=== PATIENT | female | born 1960 | race Caucasian/White ===

== ENCOUNTER 2022-03-12 00:46 | Inpatient (IN) | payer MEDICAID, OTHER ==
[2022-03-12] VITALS (14 sets, daily range): BP systolic 92–130; BP diastolic 59–87
[~2022-03-12] VITALS: Ht 162.6 cm; Wt 79.6 kg
[2022-03-12] MEDS ORDERED: LACTATED RINGERS 1,000 ML IV ONE (01:00)
[2022-03-12] MEDS ORDERED: fentaNYL INJ 100 MCG/2 ML AMP IVP STA ×2 (01:00→01:46)
[2022-03-12 01:01] LABS: BASOPHILS # (AUTO) 0.1 10^3/uL (0.0-0.1); BASOPHILS % (AUTO) 1 % (0-10); EOSINOPHILS # (AUTO) 0.5 10^3/uL (0.0-0.3); EOSINOPHILS % (AUTO) 5 % (0-10); HEMATOCRIT 38 % (35-52); HEMOGLOBIN 12.7 g/dL (11.5-16.0); LYMPHOCYTES # (AUTO) 2.9 10^3/uL (1.0-4.0); LYMPHOCYTES % (AUTO) 30 % (12-44); MEAN CORPUSCULAR HEMOGLOBIN 29 pg (25-34); MEAN CORPUSCULAR HGB CONC 33 g/dL (32-36); MEAN CORPUSCULAR VOLUME 88 fL (80-99); MEAN PLATELET VOLUME 9.1 fL (9.0-12.2); MONOCYTES % (AUTO) 11 % (0-12); NEUTROPHILS # (AUTO) 5.2 10^3/uL (1.8-7.8); NEUTROPHILS % (AUTO) 54 % (42-75); PLATELET COUNT 341 10^3/uL (130-400); WHITE BLOOD COUNT 9.7 10^3/uL (4.3-11.0)
--- NOTE | 2022-03-12 01:04 | ED Hip Pain/Injury ---
General Chief Complaint: Hip/Pelvic Problems Stated Complaint: LEFT HIP FX Source: patient (EXTREMELY DIFFICULT HISTORIAN, MUCH CONVOLUTED AND INCONSISTENT INFORMATION. PT APPEARS TO BE UNDER THE INFLUENCE OF SOME SUBSTANCE/S) History of Present Illness Date Seen by Provider: Mar 12, 2022 Time Seen by Provider: 00:48 Initial Comments PT ARRIVES VIA EMS FROM A LOCAL RESIDENCE C/O LEFT HIP PAIN STATES THAT LAST THURSDAY, SHE TRIPPED ON A RUG AND FELL, LANDING ON LEFT HIP. STATES SHE WENT TO [facility] YESTERDAY/THURSDAY AND HAD XRAYS DONE. SHE STATES THEY CALLED HER TODAY AND TOLD HER IT WAS BROKEN, AND TO GO TO ER IF HER PAIN GOT WORSE EMS WAS CALLED [facility] FOR INTRACTABLE PAIN AND INABILITY TO STAND PT STATES SHE HAS CHRONIC BACK PAIN AND HAS NEUROPATHY IN HER FEET STATES SHE FELL IN 2009 AND INJURED HER BACK, BUT NO FRACTURES. SHE WENT TO PAIN MANAGEMENT AND HAD INJECTIONS IN HER BACK. SHE LIVES WITH HER [id number] IN [place], BUT HAS BEEN HERE VISITING HER SISTER FOR THE LAST WEEK. SHE DENIES ANY MEDICAL PROBLEMS. STATES SHE DOES NOT HAVE A DR. "JUST GOT MY [place] MEDICAID" PT STATES SHE USES METH ON A REGULAR BASIS--SMOKES IT--DENIES IV USE ALSO HAS HISTORY OF MARIJUANA USE OCCASIONAL ALCOHOL USE, BUT NONE TODAY QUIT SMOKING , USED TO SMOKE 1 PPD. Other PCP: NONE Allergies and Home Medications Allergies Coded Allergies: Sulfa (Sulfonamide Antibiotics) (Verified Allergy, Unknown, 03/12/22) codeine (Verified Allergy, Unknown, 03/12/22) Patient Home Medication List Home Medication List Reviewed: Yes Review of Systems Constitutional: no symptoms reported Respiratory: no symptoms reported Cardiovascular: no symptoms reported Gastrointestinal: no symptoms reported Genitourinary: no symptoms reported Control/STD Prophylaxis: None Musculoskeletal: see HPI Skin: no symptoms reported Psychiatric/Neurological: See HPI Past Xlynaka-Lmmaoi-Vbmvxb Hx Patient Social History Tobacco Use?: Yes Tobacco type used: Cigarettes Smoking Status: Former Smoker Use of E-Cig and/or Vaping dev: No Substance use?: Yes Substance type: Methamphetamine, Marijuana Additional substance use comme: DENIES IV DRUG USE. 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 oz. kg; BMI Method: General Appearance: WD/WN, Other (WAILING, SOBBING LOUDLY, EXTREMELY DRAMATIC, TALKING RAPIDLY AND TANGENTIAL. APPEARS TO BE UNDER THE INFLUENCE OF SOME SUBSTANCE/S) HEENT: PERRL/EOMI Neck: Normal Inspection, Non Tender Cardiovascular: Regular Rate, Rhythm, No Edema, No JVD, No Murmur Respiratory: Chest Non Tender, Normal Breath Sounds, No Accessory Muscle Use, No Respiratory Distress Gastrointestinal: Non Tender, Soft Extremity: Normal Capillary Refill, No Pedal Edema, Other (TENDERNESS TO LEFT HIP) Neurologic/Psychiatric: Alert, Oriented x3, No Motor/Sensory Deficits, Other (BEHAVIOR ABOVE. ) Skin: Normal Color, Warm/Dry Progress/Results/Core Measures Results/Orders Lab Results Laboratory Tests Test 03/12/22 00:50 03/12/22 01:02 03/12/22 01:20 Range/Units White Blood Count 9.7 4.3-11.0 10^3/uL Red Blood Count 4.35 3.80-5.11 10^6/uL Hemoglobin 12.7 11.5-16.0 g/dL Hematocrit 38 35-52 % Mean Corpuscular Volume 88 80-99 fL Mean Corpuscular Hemoglobin 29 25-34 pg Mean Corpuscular Hemoglobin Concent 33 32-36 g/dL Red Cell Distribution Width 12.7 10.0-14.5 % Platelet Count 341 130-400 10^3/uL Mean Platelet Volume 9.1 9.0-12.2 fL Immature Granulocyte % (Auto) 0 % Neutrophils (%) (Auto) 54 42-75 % Lymphocytes (%) (Auto) 30 12-44 % Monocytes (%) (Auto) 11 0-12 % Eosinophils (%) (Auto) 5 0-10 % Basophils (%) (Auto) 1 0-10 % Neutrophils # (Auto) 5.2 1.8-7.8 10^3/uL Lymphocytes # (Auto) 2.9 1.0-4.0 10^3/uL Monocytes # (Auto) 1.0 0.0-1.0 10^3/uL Eosinophils # (Auto) 0.5 H 0.0-0.3 10^3/uL Basophils # (Auto) 0.1 0.0-0.1 10^3/uL Immature Granulocyte # (Auto) 0.0 0.0-0.1 10^3/uL Sodium Level 137 135-145 MMOL/L Potassium Level 4.5 3.6-5.0 MMOL/L Chloride Level 105 98-107 MMOL/L Carbon Dioxide Level 21 21-32 MMOL/L Anion Gap 11 5-14 MMOL/L Blood Urea Nitrogen 24 H 7-18 MG/DL Creatinine 0.71 0.60-1.30 MG/DL Estimat Glomerular Filtration Rate 98 BUN/Creatinine Ratio 34 Glucose Level 118 H 70-105 MG/DL Calcium Level 9.9 8.5-10.1 MG/DL Corrected Calcium 10.1 8.5-10.1 MG/DL Total Bilirubin 0.2 0.1-1.0 MG/DL Aspartate Amino Transf (AST/SGOT) 17 5-34 U/L Alanine Aminotransferase (ALT/SGPT) 25 0-55 U/L Alkaline Phosphatase 125 40-136 U/L Total Protein 7.6 6.4-8.2 GM/DL Albumin 3.8 3.2-4.5 GM/DL Serum Alcohol < 10 <10 MG/DL Prothrombin Time 13.2 12.2-14.7 SEC INR Comment 1.0 0.8-1.4 Activated Partial Thromboplast Time 33 24-35 SEC Urine Color YELLOW Urine Clarity CLEAR Urine pH 6.5 5-9 Urine Specific [place] 1.015 L 1.016-1.022 Urine Protein NEGATIVE NEGATIVE Urine Glucose (UA) NEGATIVE NEGATIVE Urine Ketones NEGATIVE NEGATIVE Urine Nitrite NEGATIVE NEGATIVE Urine Bilirubin NEGATIVE NEGATIVE Urine Urobilinogen 0.2 < = 1.0 MG/DL Urine Leukocyte Esterase NEGATIVE NEGATIVE Urine RBC (Auto) NEGATIVE NEGATIVE Urine RBC NONE /HPF Urine WBC NONE /HPF Urine Squamous Epithelial Cells 0-2 /HPF Urine Crystals NONE /LPF Urine Bacteria NEGATIVE /HPF Urine Casts NONE /LPF Urine Mucus SMALL H /LPF Urine Culture Indicated NO Urine Opiates Screen NEGATIVE NEGATIVE Urine Oxycodone Screen NEGATIVE NEGATIVE Urine Methadone Screen NEGATIVE NEGATIVE Urine Propoxyphene Screen NEGATIVE NEGATIVE Urine Barbiturates Screen NEGATIVE NEGATIVE Ur Tricyclic Antidepressants Screen NEGATIVE NEGATIVE Urine Phencyclidine Screen NEGATIVE NEGATIVE Urine Amphetamines Screen POSITIVE H NEGATIVE Urine Methamphetamines Screen POSITIVE H NEGATIVE Urine Benzodiazepines Screen NEGATIVE NEGATIVE Urine Cocaine Screen NEGATIVE NEGATIVE Urine Cannabinoids Screen NEGATIVE NEGATIVE My Orders Orders - JACQUI HERNÁNDEZ DO Pelvis With Left Hip 2-3 Views (03/12/22 00:51) Chest 1 View, Ap/Pa Only (03/12/22 00:51) Catheter(Urinary) Insert & Ass 03,15 (03/12/22 00:51) Alcohol (03/12/22 00:51) Cbc With Automated Diff (03/12/22 00:51) Comprehensive Metabolic Panel (03/12/22 00:51) Drug Screen Stat (Urine) (03/12/22 00:51) Protime With Inr (03/12/22 00:51) Partial Thromboplastin Time (03/12/22 00:51) Ua Culture If Indicated (03/12/22 00:51) Ed Iv/Invasive Line Start (03/12/22 00:51) Ed Iv/Invasive Line Start (03/12/22 01:00) Lactated Ringers (Lr 1000 Ml Iv Solution (03/12/22 01:00) Fentanyl Inj (Sublimaze Injection) (03/12/22 01:00) Ct Pelvis Wo (03/12/22 01:12) Medications Given in ED Current Medications Medications Dose Ordered Sig/Ofe Route Start Time Stop Time Status Last Admin Dose Admin Lactated Ringer's 1,000 ml @ 0 mls/hr Q0M ONCE IV 03/12/22 01:00 03/12/22 01:02 DC 03/12/22 01:10 999 MLS/HR Vital Signs/I&O 03/12/22 00:48 Temp 36.4 Pulse 118 Resp 20 B/P (MAP) 132/95 (107) Pulse Ox 97 O2 Delivery Room Air Progress Progress Note : Progress Note GIVEN FENTANYL, THEN MORPHINE FOR PAIN IMPROVED PAIN CONTROL WITH MORPHINE, AND PT APPEARS CALMER. NO DETERIORATION IN PT'S CONDITION DURING ER STAY Diagnostic Imaging Comments CXR--NO ACUTE PROCESS, PENDING RADIOLOGIST REVIEW PELVIS/LEFT HIP--FEMORAL NECK FRACTURE, WITH SOME DISPLACEMENT, PENDING RADIOLOGIST REVIEW CT PELVIS--PER [facility] VIA FAX AT 0233 --COMMINUTED SUBCAPITAL FRACTURE OF LEFT HIP WITH 90 DEGREES OF ANTERIOR ANGULATION AND 2 CM OF SUPERIOR DISPLACEMENT OF FEMORAL NECK WITH RESPECT TO THE HEAD. HEAD REMAINS IN ACETABULAR FOSSA. Reviewed: Reviewed by Sd Departure Communication (Admissions) 0127--SPOKE WITH DR. STEIN, ORTHOPEDIC SURGEON, ADVISES TO ADMIT TO MEDICINE AND HE WILL SEE PT IN CONSULT. PLAN ON SURGERY IN THE MORNING 129--SPOKE WITH DR. SANDS, HOSPITALIST, ACCEPTS PT FOR ADMIT Impression Primary Impression: Closed left hip fracture Additional Impression: Methamphetamine use Disposition: 09 ADMITTED INPATIENT Condition: Stable Admissions Decision to Admit Reason: Admit from ER (Trauma) Decision to Admit/Date: Mar 12, 2022 Time/Decision to Admit Time: 01:30 JACQUI HERNÁNDEZ DO Mar 12, 2022 01:04
[2022-03-12 01:11] LABS: ALBUMIN 3.8 GM/DL (3.2-4.5); CHLORIDE 105 MMOL/L (98-107); POTASSIUM 4.5 MMOL/L (3.6-5.0); SODIUM 137 MMOL/L (135-145)
[2022-03-12 01:12] LABS: CALCIUM 9.9 MG/DL (8.5-10.1)
[2022-03-12 01:13] LABS: GLUCOSE 118 MG/DL (70-105)
[2022-03-12 01:14] LABS: CARBON DIOXIDE 21 MMOL/L (21-32); TOTAL PROTEIN 7.6 GM/DL (6.4-8.2)
[2022-03-12 01:15] LABS: BILIRUBIN,TOTAL 0.2 MG/DL (0.1-1.0)
[2022-03-12 01:17] LABS: ALKALINE PHOSPHATASE 125 U/L (40-136); CREATININE SERUM 0.71 MG/DL (0.60-1.30); GFR ESTIMATED 98
[2022-03-12 01:18] LABS: BUN/CREATININE RATIO 34
[2022-03-12 01:20] LABS: PROTHROMBIN TIME PATIENT 13.2 SEC (12.2-14.7)
[2022-03-12 01:20] LABS: ALANINE AMINOTRANSFERASE 25 U/L (0-55)
[2022-03-12 01:26] LABS: BILIRUBIN,URINE NEGATIVE (NEGATIVE); CLARITY,URINE CLEAR; COLOR,URINE YELLOW; GLUCOSE, URINE (UA) NEGATIVE (NEGATIVE); KETONES,URINE NEGATIVE (NEGATIVE); LEUKOCYTE ESTERASE ,URINE NEGATIVE (NEGATIVE); NITRITE,URINE NEGATIVE (NEGATIVE); PH,URINE 6.5 (5-9); PROTEIN,URINE NEGATIVE (NEGATIVE)
[2022-03-12 01:39] LABS: AMPHETAMINE SCREEN, URINE POSITIVE (NEGATIVE); BARBITURATE SCREEN URINE NEGATIVE (NEGATIVE); BENZODIAZEPINES SCREEN URINE NEGATIVE (NEGATIVE); CANNABINOID SCREEN, URINE NEGATIVE (NEGATIVE); COCAINE SCREEN URINE NEGATIVE (NEGATIVE); METHADONE STAT NEGATIVE (NEGATIVE); OPIATE SCREEN URINE NEGATIVE (NEGATIVE); OXYCODONE STAT NEGATIVE (NEGATIVE); PROPOXYPHENE STAT NEGATIVE (NEGATIVE); TRICYCLIC ANTIDEPRESSANTS SCRE NEGATIVE (NEGATIVE)
[2022-03-12 01:44] LABS: BACTERIA,URINE NEGATIVE /HPF; SQUAMOUS EPITHELIAL CELL,UR 0-2 /HPF
[2022-03-12] MEDS ORDERED: morphine INJ 10 MG/ML 1ML (SYR OR VIAL) IVP ONE ×2 (02:15→14:45)
[2022-03-12] MEDS ORDERED: morphine INJ 4 MG/ML 1 ML (VIAL/SYRINGE) IV PRN (04:00)
[2022-03-12] MEDS ORDERED: LORazepam INJ 2 MG/ML (ATIVAN) VIAL IV PRN (04:00)
[2022-03-12] MEDS: D5 1/2 NS W/KCL 20 MEQ/L 1,000 ML IV SCH ×4 (04:03→22:02)
--- NOTE | 2022-03-12 06:40 | Diagnostic Imaging Report ---
PROCEDURE: CT pelvis without contrast. TECHNIQUE: Multiple contiguous axial images were obtained through the pelvis without the use of intravenous contrast. Sagittal and coronal reformations were performed. Auto Exposure Controls were utilized during the CT exam to meet ALARA standards for radiation dose reduction. INDICATION: Fall and left hip pain. FINDINGS: There is no evidence of free fluid or hemoperitoneum within the pelvis. The urinary bladder is decompressed around a Rey catheter balloon. There is a comminuted subcapital fracture in the proximal left femur with moderate impaction and approximately 2 cm superior displacement of the femoral neck with respect to the head. There is no femoral head dislocation. Right hip joint is intact. There is mild lumbar spondylosis. IMPRESSION: Impacted, mildly comminuted subcapital fracture of the proximal left femur with approximately 2 cm superior displacement of the neck with respect to the left femoral head. Dictated by: Dictated on workstation # [id number]
[2022-03-12] MEDS ORDERED: FLU QUADRIvalent (6 months+) 60 mcg/0.5 ml 2022-23 (Fluzone) IM ONE (06:45)
--- NOTE | 2022-03-12 06:59 | Progress Note ---
Standard Progress Note Progress Notes/Assess & Plan Date Seen by a Provider: Mar 12, 2022 Time Seen by a Provider: 06:50 Progress/Assessment & Plan patient seen and examined consult dictated plan for left hip bipolar replacement today BOOM STEIN MD Mar 12, 2022 06:59
--- NOTE | 2022-03-12 07:02 | Diagnostic Imaging Report ---
INDICATION: Fall with left hip pain. FINDINGS: 2 views. There is a femoral neck fracture on the left. Femoral head remains in good position with the acetabulum with moderate arthritic change. IMPRESSION: Left femoral neck fracture. Dictated by: Dictated on workstation # [id number]
--- NOTE | 2022-03-12 07:03 | Diagnostic Imaging Report ---
INDICATION: Fall. Left hip pain. FINDINGS: Portable chest. The lungs are well-aerated and clear. Heart is not enlarged. No pneumothorax or pleural effusion. No rib fractures noted. IMPRESSION: Normal portable chest. Dictated by: Dictated on workstation # [id number]
--- NOTE | 2022-03-12 07:28 | CONSULTATION REPORT ---
DATE OF SERVICE: 03/11/2022 INPATIENT CONSULTATION REASON FOR CONSULTATION: Left femoral neck fracture. HISTORY OF PRESENT ILLNESS: The patient is a 61-year-old female who apparently fell on Thursday, landing on her left hip. By report, she was seen in urgent care at some point this week and told her that she had a fractured hip. She had increased pain, so she presented to the Emergency Department where she was found to have a displaced femoral neck fracture. She reports chronic back pain, but denies prior history of hip problems other than occasional "catch." The patient does report methamphetamine abuse. ALLERGIES: SULFA AND CODEINE. ORTHOPEDIC EXAMINATION: The left lower extremity is shortened and externally rotated. She has symmetric pulses. She has intact dorsiflexion and plantarflexion of the toes. Sensation is symmetric to the contralateral side. Radiographs reveal a closed displaced left femoral neck fracture. IMPRESSION: Closed displaced left femoral neck fracture. PLAN: Left hip bipolar replacement. I discussed risks, benefits, options, ramifications and recovery with the patient. She understands and wishes to proceed. Job ID: [id number] DocumentID: [id number] Dictated Date: 03/12/2022 06:53:43 Sash Maker Date: 03/12/2022 07:26:00 Dictated By: BOOM STEIN MD
--- NOTE | 2022-03-12 10:08 | Progress Note-Pre Operative ---
Pre-Operative Progress Note Date of Available H&P: Mar 12, 2022 Date H&P Reviewed: Mar 12, 2022 Time H&P Reviewed: 10:08 Changes from last HP none Pre-Operative Diagnosis: left closed, displaced femoral neck fracture BOOM STEIN MD Mar 12, 2022 10:08
--- NOTE | 2022-03-12 10:09 | Progress Note-Post Operative ---
Post-Operative Progess Note Surgeon (s)/Grinding Wheel Facer (s) Surgeon BOOM STEIN MD Grinding Wheel Facer: Doroteo Crouch Pre-Operative Diagnosis left closed, displaced femoral neck fracture Post-Operative Diagnosis left closed, displaced femoral neck fracture Procedure & Operative Findings Date of Procedure 03/12/22 Procedure Performed/Findings left hip bipolar replacement Anesthesia Type GETA Estimated Blood Loss Estimated blood loss (mL): 200 ml Specimens/Packing Specimens Removed femoral head Packing: none BOOM STEIN MD Mar 12, 2022 10:09
[2022-03-12] MEDS ORDERED: diphenhydrAMINE 50 MG/ML INJ (BENADRYL) IVP PRN (10:30)
[2022-03-12] MEDS ORDERED: TEMAZEPAM 15 MG (RESTORIL) CAP PO PRN (10:30)
[2022-03-12] MEDS ORDERED: ACETAMINOPHEN 325 MG TABLET PO PRN (10:30)
[2022-03-12] MEDS ORDERED: morphine INJ 4 MG/ML 1 ML (VIAL/SYRINGE) IVP PRN (10:30)
[2022-03-12] MEDS ORDERED: ONDANSETRON 4 MG/2 ML (SDV) Z0FRAN IVP PRN ×2 (10:30→14:45)
[2022-03-12] MEDS ORDERED: BUPIVACAINE 0.5% 30 ML (SENSORCAINE) VIAL ONE (10:50)
--- NOTE | 2022-03-12 11:21 | Occ Therapy Progress Note ---
Therapy Progress Note OT orders received. Per chart, pt in surgery today for a left hip bipolar replacement. OT will initiate evaluation on post op day 1. Kaye Curry OT Mar 12, 2022 11:21
[2022-03-12] MEDS ORDERED: RT-ALBUTEROL/IPRATROPIUM 3 ML (DUONEB) VIAL INH PRN (12:30)
[2022-03-12] MEDS ORDERED: ceFAZolin INJECTION 2,000 MG ONE (12:42)
[2022-03-12] MEDS ORDERED: GLYCOPYRROLATE 0.2 MG/ML (ROBINUL) 2 ML VIAL ONE (12:48)
[2022-03-12] MEDS ORDERED: ROCURONIUM 10 MG/ML 5 ML SYRINGE IV ONE (12:48)
[2022-03-12] MEDS ORDERED: fentaNYL INJ 100 MCG/2 ML AMP ONE (12:48)
[2022-03-12] MEDS ORDERED: proPOfol 200 MG/20 ML (DIPRIVAN) VIAL IV ONE (12:48)
[2022-03-12] MEDS ORDERED: ONDANSETRON 4 MG/2 ML (SDV) Z0FRAN ONE (12:48)
[2022-03-12] MEDS ORDERED: MIDAZOLAM 2 MG/2 ML (VERSED) VIAL ONE (12:48)
[2022-03-12] MEDS ORDERED: LIDOCAINE PF 2% 5 ML (XYLOCAINE) VIAL ONE (12:48)
--- NOTE | 2022-03-12 12:48 | Physical Therapy Progress Note ---
Therapy Progress Note Order for PT evaluation received. Patient is having surgery this afternoon. Will start in the morning. PRASHANT HARVEY PT Mar 12, 2022 12:48
[2022-03-12] MEDS ORDERED: ceFAZolin INJECTION 2,000 MG in NS (IVPB) 50 ML IV ONE (13:00)
[2022-03-12] MEDS ORDERED: PHENYLEPHRINE 100 MCG/ML 10 ML (ANESTHESIA) SYR ONE (13:11)
[2022-03-12] MEDS: BUPIVACAINE 0.5% 30 ML (SENSORCAINE) VIAL INJ ONE (13:12)
[2022-03-12] MEDS ORDERED: ceFAZolin INJECTION 2,000 MG IV ONE (13:27)
[2022-03-12] MEDS ORDERED: NEOSTIGMINE (BLOXIVERZ ) 1 MG/1ML 10 ML VIAL ONE (13:40)
[2022-03-12] MEDS ORDERED: ROPIVACAINE 5MG/ML 30ML VIAL ONE (13:55)
[2022-03-12] MEDS ORDERED: HYDROmorphone 2 MG/ML VIAL (DILAUDID) IV ONE (14:45)
[2022-03-12] MEDS ORDERED: SEVOFLURANE (ULTANE) 15 ML INHAL SOLN ONE (14:58)
--- NOTE | 2022-03-12 16:16 | Diagnostic Imaging Report ---
INDICATION: Postop. FINDINGS: Left hip prosthesis projects in good alignment as seen in postop AP radiograph. No suspect foreign body. IMPRESSION: Good appearance of the left total hip. Dictated by: Dictated on workstation # [id number]
--- NOTE | 2022-03-12 16:38 | History & Physical-Hospitalist ---
History of Present Illness HPI/Chief Complaint Nette Corona is a 61 year old female who presented after a fall. She reports tripping over her feet and falling. She denies hitting her head or losing consciousness. She did not feel lightheaded or dizzy. She did not have any chest pain or palpitations. She denies shortness of breath. She has been in her normal state of health. She does not take any medications regularly. She does not have any known health problems. She does not smoke cigarettes. She does smoke methamphetamine. Source: patient Exam Limitations: no limitations Date Seen 03/12/22 Time Seen by a Provider: 11:20 Attending Physician No,Local Physician PCP Admitting Physician: Wilda Fortune DO Attending Physician: Suzette Dowling MD Referring Physician Date of Admission Mar 12, 2022 at 01:30 Home Medications & Allergies Home Medications Reviewed patient Home Medication Reconciliation performed by pharmacy medication reconciliations compliance technician and/or nursing. Patients Allergies have been reviewed. Allergies Allergies Coded Allergies Sulfa (Sulfonamide Antibiotics) (Verified Allergy, Unknown, 03/12/22) codeine (Verified Allergy, Unknown, pt has received Lortab in the past, ) Past Onbgcox-Ssfvwx-Zyrgpa Hx Patient Social History Tobacco Use?: No Tobacco type used: Cigarettes Smoking Status: Former Smoker Smokeless Tobacco Frequency: Never a User Use of E-Cig and/or Vaping dev: No Substance use?: Yes Substance type: Amphetamines, Methamphetamine, Marijuana Additional substance use comme: DENIES IV DRUG USE. 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 oz. kg; 29.84 BMI Method: General Appearance: No Apparent Distress, WD/WN HEENT: PERRL/EOMI, Pharynx Normal Neck: Normal Inspection, Supple Respiratory: Lungs Clear, Normal Breath Sounds, No Respiratory Distress Cardiovascular: No Edema, No Murmur, Tachycardia Gastrointestinal: Normal Bowel Sounds, Non Tender, Soft Extremity: Normal Inspection, No Pedal Edema Neurologic/Psychiatric: Alert, Normal Mood/Affect Skin: Normal Color, Warm/Dry Results Results/Procedures Labs Laboratory Tests 03/12/22 00:50 Patient resulted labs reviewed. Imaging: Reviewed Imaging Report Assessment/Plan Admission Diagnosis Hip fracture Admission Status: Inpatient Order (span 2 midnights) Reason for Inpatient Admission: Hip surgery Assessment and Plan Closed displaced fracture of the left femoral neck Ortho consulted, Diane Surgery today PT/OT Pain regimen Bowel regimen IRU evaluation Substance abuse Positive for amphetamines/methamphetamines IV fluids Former smoker No acute needs DVT prophylaxis: Lovenox Diagnosis/Problems Diagnosis/Problems (1) Closed displaced fracture of left femoral neck Status: Acute (2) Substance abuse Status: Acute (3) Former smoker Status: Acute SUZETTE DOWLING MD Mar 12, 2022 16:38
[2022-03-12] MEDS ORDERED: CEFUROXIME INJECTION 750 MG in NS (IVPB) 50 ML IV SCH (18:30)
[2022-03-12] MEDS: CEFUROXIME INJECTION 750 MG in NS (IVPB) 50 ML IV SCH (20:25)
[2022-03-12] MEDS: SENNOSIDES 8.6 MG (SENOKOT) TAB PO SCH (20:25)
[2022-03-12] MEDS: HYDROcodone/APAP 7.5 MG/325 MG (LORTAB, LORCET PLUS) TABLET PO PRN (20:49)
[2022-03-12] MEDS ORDERED: fentaNYL INJ 100 MCG/2 ML AMP IVP PRN (21:00)
[2022-03-13] VITALS (8 sets, daily range): BP systolic 87–112; BP diastolic 58–71
--- NOTE | 2022-03-13 01:27 | OPERATIVE REPORT ---
DATE OF SERVICE: 03/12/2022 PREOPERATIVE DIAGNOSIS: Closed, displaced left femoral neck fracture. POSTOPERATIVE DIAGNOSIS: Closed, displaced left femoral neck fracture. PROCEDURE: Left hip bipolar replacement. SURGEON: Boom Stein MD PRESSROOM FOREMAN: BRIAN Ace, who assisted throughout the procedure and closed the incision. ANESTHESIA: General endotracheal by Dr. Lutz. ESTIMATED BLOOD LOSS: 200 mL DRAINS: None. COMPLICATIONS: None. MATERIALS: Synthes press-fit 6 stem with 46 standard neck. The patient was transferred to the recovery room awake and stable condition. POSTOPERATIVE PLAN: Routine hip precautions. STATEMENT OF MEDICAL NECESSITY: The patient is a 61-year-old female who fell at some point in the last several days. She presented to the Emergency Department last night and was found to have a closed displaced left femoral neck fracture. Due to the displaced nature of the fracture, recommended the patient to undergo operative fixation. DESCRIPTION OF PROCEDURE: After risks and benefits of the procedure were discussed and questions were answered and informed consent was signed and placed on the chart. The operative site was confirmed in the preoperative holding area and initialed by surgeon and initialed by the surgeon. The patient was then transported to the operating room and after adequate levels of general endotracheal anesthetic was obtained, a timeout was called, confirming the operative site. The patient was then carefully placed in the right lateral decubitus position, being careful placed on axillary roll and pad all bony prominences. The left hip and lower extremity were prepped and draped in the usual sterile fashion. Standard lateral approach was utilized. Hemostasis was obtained with cautery. The iliotibial band was incised in line with the incision. The abductor was released from its attachment, leaving 2 cm cuff for later reapproximation. The hip capsulotomy was performed. The fracture site was identified and the edges were smoothed with a rongeur. The femoral head was removed without difficulty. The acetabulum was irrigated with pulse lavage and inspected for loose bodies. The femoral head was sized to a size 46. The proximal femur was then prepared with a box chisel followed by the T-handle reamer and sequentially broached up to a size 6. This was then used as a trial with a standard neck and 46 mm liner. The hip was reduced and found to be stable in all planes with no instability noted and no impingement noted. The trials were removed after re-dislocating the hip. The joint was further irrigated with pulse lavage. The femoral stem was placed in 15 degrees of anteversion with excellent fill obtained. The proximal aspect was irrigated and dried and the head liner construct was placed. The acetabulum was further irrigated and inspected for loose bodies. The hip was reduced without difficulty and taken through range of motion. No impingement was noted. No instability was noted in any plane. The joint was further irrigated with pulse lavage. The capsulotomy and abductors were reapproximated using #5 Tevdek in [id number] interrupted fashion. The wound was further irrigated. The iliotibial band was closed in a running fashion with #1 Vicryl. Subcutaneous tissues were irrigated with pulse lavage using a total of 3 liters throughout the procedure. A 0 Vicryl was used through the deep subcutaneous layer, 2-0 Vicryl for the superficial subcutaneous layer. Darling were used on the skin. The incision was infiltrated with plain Marcaine. A soft dressing was applied and the patient was transported to the recovery room awake and in stable condition. Job ID: [id number] DocumentID: [id number] Dictated Date: 03/12/2022 14:10:23 Lab Coordinator Date: 03/13/2022 01:26:00 Dictated By: BOOM STEIN MD
[2022-03-13] MEDS: CEFUROXIME INJECTION 750 MG in NS (IVPB) 50 ML IV SCH (05:08)
[2022-03-13] MEDS: D5 1/2 NS W/KCL 20 MEQ/L 1,000 ML IV SCH (05:08)
[2022-03-13 05:52] LABS: HEMOGLOBIN 12.6 g/dL (11.5-16.0)
--- NOTE | 2022-03-13 06:33 | Progress Note ---
Standard Progress Note Progress Notes/Assess & Plan Date Seen by a Provider: Mar 13, 2022 Time Seen by a Provider: 06:31 Progress/Assessment & Plan patient seen and examined consult dictated plan for left hip bipolar replacement today Final Diagnosis no complaints radiograph--HW well positioned without fracture Vital Signs Date Time Temp Pulse Resp B/P (MAP) Pulse Ox O2 Delivery O2 Flow Rate FiO2 03/13/22 03:54 36.5 115 16 109/68 (82) 97 Nasal Cannula 3.00 03/13/22 01:00 119 03/13/22 00:10 109 106/64 (78) 03/12/22 23:23 36.7 114 16 105/66 (79) 97 Nasal Cannula 3.00 03/12/22 19:59 97 Nasal Cannula 1.00 03/12/22 19:19 121 120/81 (94) 98 Nasal Cannula 1.00 03/12/22 19:04 36.8 118 18 126/86 (99) 99 Nasal Cannula 2.00 03/12/22 19:00 114 03/12/22 18:23 Nasal Cannula 1.00 97 03/12/22 15:31 35.9 97 Nasal Cannula 1.00 03/12/22 15:22 100 16 110/71 (84) 98 Nasal Cannula 3.00 03/12/22 15:15 Room Air 03/12/22 15:08 36.2 19 103/73 (83) 95 Room Air 03/12/22 15:05 Room Air 03/12/22 14:58 16 101/68 (79) 97 Room Air 03/12/22 14:50 OxyMask 10.00 03/12/22 14:48 15 103/78 (86) 100 OxyMask 10.00 03/12/22 14:38 18 107/77 (87) 100 OxyMask 10.00 03/12/22 14:35 OxyMask 10.00 03/12/22 14:28 18 92/67 (75) 100 OxyMask 10.00 03/12/22 14:18 36.1 19 126/86 (99) 99 OxyMask 10.00 03/12/22 14:18 OxyMask 10.00 03/12/22 12:23 36.5 104 95 03/12/22 11:27 36.5 104 18 130/87 (101) 95 Room Air 03/12/22 07:43 Room Air 03/12/22 07:34 36.3 106 18 118/68 (85) 96 Room Air 03/12/22 07:00 114 I & O 03/13/22 07:00 Intake Total 910 ml Output Total 4380 ml Balance -3470 ml Laboratory Tests Test 03/13/22 05:05 Range/Units Hemoglobin 12.6 11.5-16.0 g/dL Hematocrit 39 35-52 % Left hip dressing intact intact DF and PF of toes and ankle intact sensation to light touch throughout brisk cap refill with equal pulses s/p L hip bipolar mobilize BOOM STEIN MD Mar 13, 2022 06:33
[2022-03-13] MEDS: ENOXAPARIN 40 MG/0.4 ML (LOVENOX) SYR SC SCH (08:26)
--- NOTE | 2022-03-13 09:22 | Physical Therapy Evaluation ---
PT Evaluation-General Medical Diagnosis Admission Date Mar 12, 2022 at 01:30 Medical Diagnosis: left hip fracture Onset Date: Mar 12, 2022 Therapy Diagnosis Therapy Diagnosis: debility/weakness Precautions Precautions/Isolations: Fall Prevention, Standard Precautions Weight Bear Status Right Lower Extremity: Right Full Weight Bearing Left Lower Extremity: Left Weight Bearing/Tolerated Referral Physician: Diane Reason for Referral: Evaluation/Treatment Medical History Pertinent Medical History: COPD, Smoking Additional Medical History polysubstance use Current History s/p a fall ~1 week ago Reviewed History: Yes Social History Home: Single Level Current Living Status: Other Family Entry Into Home: Stairs With Railing PT Steps Into Home: 6 Prior Prior Level of Function SCALE: Activities may be completed with or without assistive devices. 0-Extfqahact-dtwykmp completes the activity by him/herself with no assistance from a helper. 5-Set-up or Clean-up Assistance-helper sets up or cleans up; patient completes activity. [place] assists only prior to or following the activity. 4-Supervision or Touching Assistance-helper provides verbal cues and/or touching/steadying and/or contact guard assistance as patient completes activity. Assistance may be provided throughout the activity or intermittently. 3-Partial/Moderate Assistance-helper does LESS THAN HALF the effort. [place] lifts, holds or supports trunk or limbs, but provides less than half the effort. 2-Substantial/Maximal Assistance-helper does MORE THAN HALF the effort. [place] lifts or holds trunk or limbs and provides more than half the effort. 4-Khjviencb-whhfew does ALL the effort. Patient does none of the effort to complete the activity. Or, the assistance of 2 or more helpers is required for the patient to complete the activity. If activity was not attempted, code reason: 7-Patient Refused. 9-Not Applicable-not attempted and the patient did not perform the activity before the current illness, exacerbation or injury. 10-Not Attempted due to Environmental Limitations-(lack of equipment, weather restraints, etc.). 88-Not Attempted due to Medical Conditions or Safety Concerns. Bed Mobility: 6 Transfers (B,C,W/C): 6 Gait: 6 Stairs: 6 Indoor Mobility (Ambulation): Independent Stairs: Independent Prior Devices Use: None PT Evaluation-Current Subjective Patient agrees to PT. Pain Numeric Pain Scale: 5-Moderate Pain Location: Left Location Body Site: Hip Pain Description: Acute Objective Patient Orientation: Normal For Age Attachments: Rey Catheter, IV ROM/Strength ROM Lower Extremities bilateral LE WFL Strength Lower Extremities left LE 3+/5 grossly;right LE 4/5 grossly Integumentary/Posture Integumentary refer to nursing notes Bowel Incontinence: No Bladder Incontinence: Rey Cath Posture trunk flexed posture due to back issues Neuromuscular (Tone, Coordination, Reflexes) grossly intact Sensory Vision: Functional Hearing: Functional Transfers Lying to Sitting/Side of Bed(Q: 4 Sit to Stand (QC): 4 Chair/Qyk-ni-Xtpmn Xfer(QC): 4 Gait Mode of Locomotion: Walk Anticipated Mode of Locomotion: Walk Walk 10 feet (QC): 4 Walk 50 ft with 2 Turns(QC): 4 Walk 150 ft (QC): 4 Distance: 225' Gait Assistive Device: FWW Comments/Gait Description slow, steady gait sequence/slightly antalgic Balance Sitting Static: Normal Sitting Dynamic: Normal Standing Static: Good Standing Dynamic: Good Assessment/Needs Patient will benefit from short term skilled PT to address functional strength and mobility to improve current LOF to safely return to home at maximum LOF. Rehab Potential: Fair PT Supervisor [employer] Goals Supervisor [employer] Goals PT Alf Goals Time Frame: Mar 29, 2022 Roll Left & Right (QC): 6 Sit to Lying (QC): 6 Lying-Sitting on Side/Bed(QC): 6 Sit to Stand (QC): 6 Chair/Dxw-th-Zjxew Xfer(QC): 6 Toilet Transfer (QC): 6 Walk 10 feet (QC): 6 Walk 50ft with 2 Turns (QC): 6 Walk 150 ft (QC): 6 1 Step (curb) (QC): 4 4 Steps (QC): 4 PT Plan Problem List Problem List: Activity Tolerance, Functional Strength, Safety, Balance, Gait, Transfer, Bed Mobility Treatment/Plan Treatment Plan: Continue Plan of Care Treatment Plan: Bed Mobility, Education, Functional Activity [place], Functional Strength, Gait, Safety, Therapeutic Exercise, Transfers Treatment Duration: Mar 29, 2022 Frequency: 11 times per week Estimated Hrs Per Day: .5 hour per day Patient and/or Family Agrees t: Yes Time Time In: 715 Time Out: 734 DATE: Mar 13, 2022 Total Billed Treatment Time: 19 [facility] Mar 13, 2022 09:22
[2022-03-13] MEDS: SENNOSIDES 8.6 MG (SENOKOT) TAB PO SCH ×2 (10:22→19:47)
[2022-03-13] MEDS: HYDROcodone/APAP 7.5 MG/325 MG (LORTAB, LORCET PLUS) TABLET PO PRN ×2 (10:22→17:04)
--- NOTE | 2022-03-13 10:41 | Physical Therapy Daily Note ---
PT Daily Note-Current Subjective Patient agrees to second session with PT. Pain Numeric Pain Scale: 7 Location: Left Location Body Site: Hip Pain Description: Acute Section J - Health Conditions 1. Rarely or not at all 2. Occasionally 3. Frequently 4. Almost constantly 8. Unable to answer Pain Effect on Sleep: 2 Pain Interference with Therapy: 2 Pain Interference w/Day-to-Day: 2 Mental Status Patient Orientation: Normal For Age Attachments: IV Transfers SCALE: Activities may be completed with or without assistive devices. 3-Grdqcunrrr-fqekhbd completes the activity by him/herself with no assistance from a helper. 5-Set-up or Clean-up Assistance-helper sets up or cleans up; patient completes activity. [place] assists only prior to or following the activity. 4-Supervision or Touching Assistance-helper provides verbal cues and/or touching/steadying and/or contact guard assistance as patient completes activity. Assistance may be provided throughout the activity or intermittently. 3-Partial/Moderate Assistance-helper does LESS THAN HALF the effort. [place] lifts, holds or supports trunk or limbs, but provides less than half the effort. 2-Substantial/Maximal Assistance-helper does MORE THAN HALF the effort. [place] lifts or holds trunk or limbs and provides more than half the effort. 5-Ygtzxlmhh-batxyv does ALL the effort. Patient does none of the effort to complete the activity. Or, the assistance of 2 or more helpers is required for the patient to complete the activity. If activity was not attempted, code reason: 7-Patient Refused. 9-Not Applicable-not attempted and the patient did not perform the activity before the current illness, exacerbation or injury. 10-Not Attempted due to Environmental Limitations-(lack of equipment, weather restraints, etc.). 88-Not Attempted due to Medical Conditions or Safety Concerns. Sit to Lying (QC): 4 Sit to Stand (QC): 4 Chair/Pnc-qk-Zhjrs Xfer(QC): 4 Weight Bearing Right Lower Extremity: Right Full Weight Bearing Left Lower Extremity: Left Weight Bearing/Tolerated Gait Training Distance: 200' Walk 10 feet (QC): 4 Walk 50 ft with 2 Turns(QC): 4 Walk 150 ft (QC): 4 Gait Assistive Device: FWW trunk flexed posture with FWW use/step to gait sequence Assessment Patient returns to bed with needs met. Patient improving with gross motor skills. PT Jail Goals Bathhouse Keeper Goals PT Bathhouse Keeper Goals Time Frame: Mar 29, 2022 Roll Left & Right (QC): 6 Sit to Lying (QC): 6 Lying-Sitting on Side/Bed(QC): 6 Sit to Stand (QC): 6 Chair/Jgx-kv-Xcfhn Xfer(QC): 6 Toilet Transfer (QC): 6 Walk 10 feet (QC): 6 Walk 50ft with 2 Turns (QC): 6 Walk 150 ft (QC): 6 1 Step (curb) (QC): 4 4 Steps (QC): 4 PT Plan Treatment/Plan Treatment Plan: Continue Plan of Care Treatment Plan: Bed Mobility, Education, Functional Activity [place], Functional Strength, Gait, Safety, Therapeutic Exercise, Transfers Treatment Duration: Mar 29, 2022 Frequency: 11 times per week Estimated Hrs Per Day: .5 hour per day Patient and/or Family Agrees t: Yes Time Time In: 1013 Time Out: 1023 DATE: Mar 13, 2022 Total Billed Treatment Time: 10 Total Billed Treatment 1 visit [facility] 10 min TRICE HUBBARD PT Mar 13, 2022 10:41
--- NOTE | 2022-03-13 12:55 | Occupational Therapy Eval ---
OT Evaluation-General/PLF Medical Diagnosis Admission Date Mar 12, 2022 at 01:30 Medical Diagnosis: left hip fracture/bipolar replacement Onset Date: Mar 12, 2022 Therapy Diagnosis Therapy Diagnosis: Weakness, Decreased ADL skills Precautions Precautions/Isolations: Fall Prevention, Standard Precautions Weight Bear Status Weight Bearing Restriction: Weight Bearing/Tolerated WBAT, hip precautions Referral Physician: Diane Referral Reason: Activity Tolerance, Self Care, Evaluation/Treatment, Strengthening/ROM Medical History Pertinent Medical History: COPD, Smoking Additional Medical History asthma, meth use, abdominal surgery Current History Pt. fell at home. Fx hip. Had bipolar replacement Reviewed History: Yes Social History Home: Single Level Current Living Status: Other Family (Sister in law) Entry Into Home: Stairs With Railing Steps Into Home: 6 ADL-Prior Level of Function SCALE: Activities may be completed with or without assistive devices. 1-Pbtrgbqxhx-bmufyiv completes the activity by him/herself with no assistance from a helper. 5-Set-up or Clean-up Assistance-helper sets up or cleans up; patient completes activity. [place] assists only prior to or following the activity. 4-Supervision or Touching Assistance-helper provides verbal cues and/or touching/steadying and/or contact guard assistance as patient completes activity. Assistance may be provided throughout the activity or intermittently. 3-Partial/Moderate Assistance-helper does LESS THAN HALF the effort. [place] lifts, holds or supports trunk or limbs, but provides less than half the effort. 2-Substantial/Maximal Assistance-helper does MORE THAN HALF the effort. [place] lifts or holds trunk or limbs and provides more than half the effort. 4-Ftwessmgx-fgbywp does ALL the effort. Patient does none of the effort to compl ete the activity. Or, the assistance of 2 or more helpers is required for the patient to complete the activity. If activity was not attempted, code reason: 7-Patient Refused. 9-Not Applicable-not attempted and the patient did not perform the activity before the current illness, exacerbation or injury. 10-Not Attempted due to Environmental Limitations-(lack of equipment, weather restraints, etc.). 88-Not Attempted due to Medical Conditions or Safety Concerns. ADL PLOF Comments Pt. states that she was independent with daily skills prior to this. However, she does not drive or work. Self Care: Independent Functional Cognition: Unknown DME/Equipment: Bath Chair, Shower DME/Equipment Comments Pt. does not have a walker Drive Self: No OT Current Status Subjective Pt. does not report pain level. Mental Status/Objective Patient Orientation: Person, Place, Time, Situation Attachments: IV, Oxygen Current Upper Extremity ROM WFL ADL-Treatment Eating (QC): 6 (per pt) Shower/Bathe Self (QC): 3 (Mod assist to wash saravanan area and bilateral LE. Pt. able to wash UE and front saravanan area.) On/Off Footwear (QC): 2 (Due to hip precautions) Pt. transferred supine-sit with min/mod assist. Bathed EOB. Stood at walker with min assist. OT cleansed rear saravanan area in stance. Pt. took several steps to chair. All needs met up in chair. Pt. would benefit from AE training. Education OT Patient Education: Correct positioning, Modified ADL techniques, Progress toward Goal/Update tx plan, Purpose of tx/functional activities, Reviewed precautions, Rehab process, Transfer techniques Teaching Recipient: Patient Teaching Methods: Demonstration, Discussion Response to Teaching: Verbalize Understanding, Return Demonstration OT Short Term Goals Short Term Goals Time Frame: Mar 20, 2022 Eatin Oral hygiene: 5 Toileting hygiene: 4 Shower/bathe self: 4 Upper body dressin Lower body dressin Putting on/taking off footwear: 4 OT Skilled Nursing Goals Skilled Nursing Goals Time Frame: Apr 03, 2022 Eating (QC): 6 Oral Hygiene (QC): 6 Toileting Hygiene (QC): 6 Shower/Bathe Self (QC): 5 Upper Body Dressing (QC): 6 Lower Body Dressing (QC): 6 On/Off Footwear (QC): 6 Additional Goals: 1-Demonstrate ADL Tasks, 2-Verbalize Understanding, 3- ImproveStrength/[place] 1=Demonstrate adherence to instructed precautions during ADL tasks. 2=Patient will verbalize/demonstrate understanding of assistive devices/modifications for ADL. 3=Patient will improve strength/tolerance for activity to enable patient to perform ADL's. OT Education/Plan Problem List/Assessment Assessment: Decreased Activ Tolerance, Dependent Transfers, Impaired I ADL's, Impaired Self-Care Skills Discharge Recommendations Plan/Recommendations: Continue POC Therapy Discharge Recommendati: Post Acute OT Equpiment Recommendations-D/C: Hip Kit Treatment Plan/Plan of Care Treatment,Training & Education: Yes Patient would benefit from OT for education, treatment and training to promote independence in ADL's, mobility, safety and/or upper extremity function for ADL's. Plan of Care: ADL Retraining, Functional Mobility, UE Funct Exercise/Act Treatment Duration: Apr 03, 2022 Frequency: 3 times per week (3-5x/week) Estimated Hrs Per Day: .25 hour per day Agreement: Yes Rehab Potential: Good Time Start Time: 10:00 Stop Time: 10:15 DATE: Mar 13, 2022 Total Time Billed (hr/min): 15 Billed Treatment Time 1, JAIDEN GIBSON OT Mar 13, 2022 12:55
--- NOTE | 2022-03-13 15:49 | Anesthesia-General Post-Op ---
General Patient Condition Mental Status/LOC: Same as Preop Cardiovascular: Satisfactory Nausea/Vomiting: Absent Respiratory: Satisfactory Pain: Controlled Complications: Absent Post Op Complications Complications None Follow Up Care/Instructions Patient Instructions None needed. Anesthesia/Patient Condition Patient Condition Patient is doing well, no complaints, stable vital signs, no apparent adverse anesthesia problems. No complications reported per nursing. EMELIA PETTIT CRNA Mar 13, 2022 15:49
--- NOTE | 2022-03-13 16:50 | Progress Note - Hospitalist ---
Subjective HPI/CC On Admission Date Seen by Provider: Mar 13, 2022 Time Seen by Provider: 11:10 Nette Corona is a 61 year old female who presented after a fall. She reports tripping over her feet and falling. She denies hitting her head or losing consciousness. She did not feel lightheaded or dizzy. She did not have any chest pain or palpitations. She denies shortness of breath. She has been in her normal state of health. She does not take any medications regularly. She does not have any known health problems. She does not smoke cigarettes. She does smoke methamphetamine. Subjective/Events-last exam She is feeling ok. She denies pain. She was able to get up and walk with therapy. She has been eating and drinking. Objective Exam Vital Signs Vital Signs Date Time Temp Pulse Resp B/P (MAP) Pulse Ox O2 Delivery O2 Flow Rate FiO2 03/13/22 16:14 36.9 114 18 88/61 (70) 96 Nasal Cannula 2.50 03/12/22 18:23 97 Capillary Refill : Less Than 3 SecondsLess Than 3 Seconds General Appearance: No Apparent Distress, WD/WN Respiratory: No Respiratory Distress, Wheezing Cardiovascular: No Murmur, Tachycardia Gastrointestinal: Normal Bowel Sounds, Soft Extremity: Normal Inspection, No Pedal Edema Neurologic/Psychiatric: Alert, Normal Mood/Affect Skin: Normal Color, Warm/Dry Results/Procedures Lab Laboratory Tests 03/13/22 05:05 Patient resulted labs reviewed. Imaging: Reviewed Imaging Report Assessment/Plan Assessment and Plan Assess & Plan/Chief Complaint Closed displaced fracture of the left femoral neck Ortho consulted, [facility] 03/12 PT/OT Pain regimen Bowel regimen Incentive spirometry Substance abuse Positive for amphetamines/methamphetamines IV fluids Former smoker Wheezing MAT protocol DVT prophylaxis: Lovenox Diagnosis/Problems Diagnosis/Problems (1) Closed displaced fracture of left femoral neck Status: Acute (2) Substance abuse Status: Acute (3) Former smoker Status: Acute (4) Wheezing Status: Acute SUZETTE DOWLING MD Mar 13, 2022 16:50
[2022-03-14] VITALS (9 sets, daily range): BP systolic 98–123; BP diastolic 60–80
[2022-03-14] MEDS: HYDROcodone/APAP 7.5 MG/325 MG (LORTAB, LORCET PLUS) TABLET PO PRN ×2 (02:31→14:45)
[2022-03-14 06:05] LABS: HEMOGLOBIN 12.2 g/dL (11.5-16.0)
--- NOTE | 2022-03-14 06:35 | Progress Note ---
Standard Progress Note Progress Notes/Assess & Plan Date Seen by a Provider: Mar 14, 2022 Time Seen by a Provider: 06:34 Progress/Assessment & Plan patient seen and examined consult dictated plan for left hip bipolar replacement today Final Diagnosis no complaints Vital Signs Date Time Temp Pulse Resp B/P (MAP) Pulse Ox O2 Delivery O2 Flow Rate FiO2 03/14/22 03:46 36.8 113 18 102/60 (74) 97 Nasal Cannula 2.50 03/14/22 01:00 118 03/14/22 00:00 36.6 110 18 98/63 (75) 98 Nasal Cannula 2.50 03/13/22 22:15 112 96/65 (75) 03/13/22 20:00 Nasal Cannula 1.00 03/13/22 19:37 36.8 111 18 87/58 (68) 96 Nasal Cannula 2.50 03/13/22 19:00 122 03/13/22 17:14 37.0 105 19 100/65 (77) 98 Nasal Cannula 2.50 03/13/22 16:14 36.9 114 18 88/61 (70) 96 Nasal Cannula 2.50 03/13/22 13:00 119 03/13/22 12:05 36.1 102 16 112/71 (85) 100 Nasal Cannula 2.50 03/13/22 08:00 Nasal Cannula 2.00 03/13/22 07:43 36.5 100 16 100/68 (79) 95 Nasal Cannula 2.50 03/13/22 07:00 100 I & O 03/14/22 07:00 Intake Total 1310 ml Output Total 300 ml Balance 1010 ml Laboratory Tests Test 03/14/22 05:42 Range/Units Hemoglobin 12.2 11.5-16.0 g/dL Hematocrit 37 35-52 % Left hip incision clean and dry no calf tenderness neg Annie's s/p L hip bipolar DC home when clears PT BOOM STEIN MD Mar 14, 2022 06:35
[2022-03-14] MEDS: ENOXAPARIN 40 MG/0.4 ML (LOVENOX) SYR SC SCH (08:07)
[2022-03-14] MEDS: SENNOSIDES 8.6 MG (SENOKOT) TAB PO SCH ×2 (08:10→21:18)
--- NOTE | 2022-03-14 08:39 | Occupational Ther Daily Note ---
OT Current Status-Daily Note Subjective Pt in recliner, alert. Pt agrees to therapy. Says she is in no pain at this time. Pt appears upset due to no visitors or phone calls from family. Mental Status/Objective Patient Orientation: Person, Place, Time, Situation Attachments: Oxygen, Telemetry ADL-Treatment Pt states that she has already has completed toileting prior to OT session and does not want to get up from chair to complete any further ADLs. Pt declines oral care at the sink but agrees to participate in recliner. Pt completes oral care by self after set up. In recliner post tx. Phone/call light in reach. All needs met. Therapy Code Descriptions/Definitions Functional [place] Measure: 0=Not Assessed/NA 4=Minimal Assistance 1=Total Assistance 5=Supervision or Setup 2=Maximal Assistance 6=Modified [place] 3=Moderate Assistance 7=Complete IndependenceSCALE: Activities may be completed with or without assistive devices. 5-Emqrnvngai-fvphssg completes the activity by him/herself with no assistance from a helper. 5-Set-up or Clean-up Assistance-helper sets up or cleans up; patient completes activity. [place] assists only prior to or following the activity. 4-Supervision or Touching Assistance-helper provides verbal cues and/or touching/steadying and/or contact guard assistance as patient completes activity. Assistance may be provided throughout the activity or intermittently. 3-Partial/Moderate Assistance-helper does LESS THAN HALF the effort. [place] lifts, holds or supports trunk or limbs, but provides less than half the effort. 2-Substantial/Maximal Assistance-helper does MORE THAN HALF the effort. [place] lifts or holds trunk or limbs and provides more than half the effort. 9-Tefxnwibv-untaxj does ALL the effort. Patient does none of the effort to complete the activity. Or, the assistance of 2 or more helpers is required for the patient to complete the activity. If activity was not attempted, code reason: 7-Patient Refused. 9-Not Applicable-not attempted and the patient did not perform the activity before the current illness, exacerbation or injury. 10-Not Attempted due to Environmental Limitations-(lack of equipment, weather restraints, etc.). 88-Not Attempted due to Medical Conditions or Safety Concerns. Oral Hygiene (QC): 5 OT Short Term Goals Short Term Goals Time Frame: Mar 20, 2022 Eatin Oral hygiene: 5 Toileting hygiene: 4 Shower/bathe self: 4 Upper body dressin Lower body dressin Putting on/taking off footwear: 4 OT Shelter Goals [employer] [facility] Goals Time Frame: Apr 03, 2022 Eating (QC): 6 Oral Hygiene (QC): 6 Toileting Hygiene (QC): 6 Shower/Bathe Self (QC): 5 Upper Body Dressing (QC): 6 Lower Body Dressing (QC): 6 On/Off Footwear (QC): 6 Additional Goals: 1-Demonstrate ADL Tasks, 2-Verbalize Understanding, 3- ImproveStrength/[place] 1=Demonstrate adherence to instructed precautions during ADL tasks. 2=Patient will verbalize/demonstrate understanding of assistive devices/modifications for ADL. 3=Patient will improve strength/tolerance for activity to enable patient to perform ADL's. OT Education/Plan Problem List/Assessment Assessment: Decreased Activ Tolerance, Impaired I ADL's, Impaired Self-Care Skills Discharge Recommendations Plan/Recommendations: Continue POC Treatment Plan/Plan of Care Patient would benefit from OT for education, treatment and training to promote independence in ADL's, mobility, safety and/or upper extremity function for ADL's. Plan of Care: ADL Retraining, Functional Mobility, UE Funct Exercise/Act Treatment Duration: Apr 03, 2022 Frequency: 3 times per week (3-5x/week) Estimated Hrs Per Day: .25 hour per day Agreement: Yes Rehab Potential: Good Time Start Time: 08:25 Stop Time: 08:33 DATE: Mar 14, 2022 Total Time Billed (hr/min): 8 Billed Treatment Time 1 visit ADL (8 min) YAMILEX MENDIETA Mar 14, 2022 08:39
--- NOTE | 2022-03-14 11:51 | Physical Therapy Daily Note ---
PT Daily Note-Current Subjective Pt is in the chair on arrival, and agreeable to treatment. Pain Section J - Health Conditions 1. Rarely or not at all 2. Occasionally 3. Frequently 4. Almost constantly 8. Unable to answer Pain Effect on Sleep: 2 Pain Interference with Therapy: 2 Pain Interference w/Day-to-Day: 2 Mental Status Patient Orientation: Person, Place, Time, Situation Transfers SCALE: Activities may be completed with or without assistive devices. 3-Dfncaklmua-kvhqepv completes the activity by him/herself with no assistance from a helper. 5-Set-up or Clean-up Assistance-helper sets up or cleans up; patient completes activity. [place] assists only prior to or following the activity. 4-Supervision or Touching Assistance-helper provides verbal cues and/or touching/steadying and/or contact guard assistance as patient completes activity. Assistance may be provided throughout the activity or intermittently. 3-Partial/Moderate Assistance-helper does LESS THAN HALF the effort. [place] lifts, holds or supports trunk or limbs, but provides less than half the effort. 2-Substantial/Maximal Assistance-helper does MORE THAN HALF the effort. [place] lifts or holds trunk or limbs and provides more than half the effort. 1-Wgksrnpuk-jnexvo does ALL the effort. Patient does none of the effort to complete the activity. Or, the assistance of 2 or more helpers is required for the patient to complete the activity. If activity was not attempted, code reason: 7-Patient Refused. 9-Not Applicable-not attempted and the patient did not perform the activity before the current illness, exacerbation or injury. 10-Not Attempted due to Environmental Limitations-(lack of equipment, weather restraints, etc.). 88-Not Attempted due to Medical Conditions or Safety Concerns. Sit to Stand (QC): 6 Chair/Fhy-wr-Zfvsi Xfer(QC): 6 Weight Bearing Right Lower Extremity: Right Full Weight Bearing Left Lower Extremity: Left Weight Bearing/Tolerated Gait Training Does the Patient Walk?: Yes Distance: 160ft Walk 10 feet (QC): 6 Walk 50 ft with 2 Turns(QC): 6 Walk 150 ft (QC): 6 Gait Persons Needed: 1 Gait Assistive Device: FWW Pt is flexed >60 degrees in standing. Wheelchair Training Does the Pt Use a Wheelchair?: No Exercises Seated Therapy Exercises: LE Protocol Seated Reps: 20 Assessment Current Status: Good Progress Pt stopped ambulation due to dyspnea and denied pain with movement. PT Rumper Goals Rumper Goals PT Rumper Goals Time Frame: Mar 29, 2022 Roll Left & Right (QC): 6 Sit to Lying (QC): 6 Lying-Sitting on Side/Bed(QC): 6 Sit to Stand (QC): 6 Chair/Zba-kd-Pdqzt Xfer(QC): 6 Toilet Transfer (QC): 6 Walk 10 feet (QC): 6 Walk 50ft with 2 Turns (QC): 6 Walk 150 ft (QC): 6 1 Step (curb) (QC): 4 4 Steps (QC): 4 PT Plan Treatment/Plan Treatment Plan: Continue Plan of Care Treatment Plan: Bed Mobility, Education, Functional Activity [place], Functional Strength, Gait, Safety, Therapeutic Exercise, Transfers Treatment Duration: Mar 29, 2022 Frequency: 11 times per week Estimated Hrs Per Day: .5 hour per day Patient and/or Family Agrees t: Yes Time Time In: 0835 Time Out: 0845 DATE: Mar 14, 2022 Total Billed Treatment Time: 10 Total Billed Treatment 1, gt 10 SHARONA FIELD PT Mar 14, 2022 11:51
--- NOTE | 2022-03-14 13:17 | Physical Therapy Daily Note ---
PT Daily Note-Current Subjective Pt. on phone x 3 attempts. Pt. explains when finally able to see her that she has lost her EBT card and is on hold to get this straightened and also now thinks they are DCing her and she is homeless essentially and has no where to go , and "I cant get ahold of my P.O." Pain Location: No Pain Reported Section J - Health Conditions 1. Rarely or not at all 2. Occasionally 3. Frequently 4. Almost constantly 8. Unable to answer Pain Effect on Sleep: 2 Pain Interference with Therapy: 2 Pain Interference w/Day-to-Day: 2 Mental Status Patient Orientation: Normal For Age Transfers SCALE: Activities may be completed with or without assistive devices. 2-Vbcxtsdjyi-rmxbaej completes the activity by him/herself with no assistance from a helper. 5-Set-up or Clean-up Assistance-helper sets up or cleans up; patient completes activity. [place] assists only prior to or following the activity. 4-Supervision or Touching Assistance-helper provides verbal cues and/or touching/steadying and/or contact guard assistance as patient completes activity. Assistance may be provided throughout the activity or intermittently. 3-Partial/Moderate Assistance-helper does LESS THAN HALF the effort. [place] lifts, holds or supports trunk or limbs, but provides less than half the effort. 2-Substantial/Maximal Assistance-helper does MORE THAN HALF the effort. [place] lifts or holds trunk or limbs and provides more than half the effort. 5-Ifrweswqp-lptraq does ALL the effort. Patient does none of the effort to complete the activity. Or, the assistance of 2 or more helpers is required for the patient to complete the activity. If activity was not attempted, code reason: 7-Patient Refused. 9-Not Applicable-not attempted and the patient did not perform the activity before the current illness, exacerbation or injury. 10-Not Attempted due to Environmental Limitations-(lack of equipment, weather restraints, etc.). 88-Not Attempted due to Medical Conditions or Safety Concerns. Sit to Stand (QC): 6 Weight Bearing Right Lower Extremity: Right Full Weight Bearing Left Lower Extremity: Left Weight Bearing/Tolerated Gait Training Does the Patient Walk?: Yes Walk 10 feet (QC): 6 Walk 50 ft with 2 Turns(QC): 6 Walk 150 ft (QC): 6 Gait Assistive Device: FWW Exercises Seated Therapy Exercises: Ankle pumps, Sit to stand, Long arc quads, Hip abd/add Seated Reps: 12 Treatments TRF OOB, gait, seated LE ex, review prec, up in recliner for lunch after Rx, carmona at hand Assessment Current Status: Good Progress PT Dye Beck Reel Operator Goals Residential Goals PT Residential Goals Time Frame: Mar 29, 2022 Roll Left & Right (QC): 6 Sit to Lying (QC): 6 Lying-Sitting on Side/Bed(QC): 6 Sit to Stand (QC): 6 Chair/Tfw-yd-Ozaic Xfer(QC): 6 Toilet Transfer (QC): 6 Walk 10 feet (QC): 6 Walk 50ft with 2 Turns (QC): 6 Walk 150 ft (QC): 6 1 Step (curb) (QC): 4 4 Steps (QC): 4 PT Plan Treatment/Plan Treatment Plan: Continue Plan of Care Treatment Plan: Bed Mobility, Education, Functional Activity [place], Functional Strength, Gait, Safety, Therapeutic Exercise, Transfers Treatment Duration: Mar 29, 2022 Frequency: 11 times per week Estimated Hrs Per Day: .5 hour per day Patient and/or Family Agrees t: Yes Safety Risks/Education Patient Education: Gait Training, Transfer Techniques, Correct Positioning, Safety Issues Teaching Recipient: Patient Teaching Methods: Demonstration, Discussion Response to Teaching: Verbalize Understanding, Return Demonstration, Reinforcement Needed Time Time In: 1300 Time Out: 1313 DATE: Mar 14, 2022 Total Billed Treatment Time: 13 Total Billed Treatment 1,GT13m AMBAR DOLAN [employer] SENIOR SERGEANT Mar 14, 2022 13:17
--- NOTE | 2022-03-14 15:33 | Progress Note - Hospitalist ---
Subjective HPI/CC On Admission Date Seen by Provider: Mar 14, 2022 Time Seen by Provider: 11:10 Nette Corona is a 61 year old female who presented after a fall. She reports tripping over her feet and falling. She denies hitting her head or losing consciousness. She did not feel lightheaded or dizzy. She did not have any chest pain or palpitations. She denies shortness of breath. She has been in her normal state of health. She does not take any medications regularly. She does not have any known health problems. She does not smoke cigarettes. She does smoke methamphetamine. Subjective/Events-last exam She is doing better. Her pain is well controlled. She is eating and drinking. She has been up moving around. She does not have anywhere to go after discharge because she is unhoused. Objective Exam Vital Signs Vital Signs Date Time Temp Pulse Resp B/P (MAP) Pulse Ox O2 Delivery O2 Flow Rate FiO2 03/14/22 12:45 131 03/14/22 11:16 36.2 18 104/63 (77) 98 Room Air 03/14/22 07:36 2.50 03/12/22 18:23 97 Capillary Refill : Less Than 3 SecondsLess Than 3 Seconds General Appearance: No Apparent Distress, WD/WN Respiratory: Lungs Clear, No Respiratory Distress Cardiovascular: Regular Rate, Rhythm, No Murmur Gastrointestinal: Normal Bowel Sounds, Soft Extremity: Normal Inspection, No Pedal Edema Neurologic/Psychiatric: Alert, Normal Mood/Affect Skin: Normal Color, Warm/Dry Results/Procedures Lab Laboratory Tests 03/14/22 05:42 Patient resulted labs reviewed. Imaging: Reviewed Imaging Report Assessment/Plan Assessment and Plan Assess & Plan/Chief Complaint Closed displaced fracture of the left femoral neck Ortho consulted, [facility] Surgery 03/12 PT/OT Pain regimen Bowel regimen Incentive spirometry Substance abuse Positive for amphetamines/methamphetamines IV fluids Former smoker Wheezing MAT protocol Homelessness SW assisting with discharge planning DVT prophylaxis: Lovenox Diagnosis/Problems Diagnosis/Problems (1) Closed displaced fracture of left femoral neck Status: Acute (2) Substance abuse Status: Acute (3) Former smoker Status: Acute (4) Wheezing Status: Acute (5) Homelessness Status: Acute SUZETTE DOWLING MD Mar 14, 2022 15:33
[2022-03-15] VITALS (7 sets, daily range): BP systolic 98–110; BP diastolic 65–74
[2022-03-15] MEDS: HYDROcodone/APAP 7.5 MG/325 MG (LORTAB, LORCET PLUS) TABLET PO PRN ×2 (00:30→10:33)
[2022-03-15 05:43] LABS: HEMOGLOBIN 11.6 g/dL (11.5-16.0)
[2022-03-15] MEDS: ENOXAPARIN 40 MG/0.4 ML (LOVENOX) SYR SC SCH (08:38)
[2022-03-15] MEDS: SENNOSIDES 8.6 MG (SENOKOT) TAB PO SCH ×2 (08:38→20:15)
--- NOTE | 2022-03-15 11:31 | Progress Note ---
Standard Progress Note Progress Notes/Assess & Plan Date Seen by a Provider: Mar 15, 2022 Time Seen by a Provider: 11:13 Progress/Assessment & Plan POD 3 Left hip bipolar hemiarthroplasty Vital Signs Date Time Temp Pulse Resp B/P (MAP) Pulse Ox O2 Delivery O2 Flow Rate FiO2 03/15/22 10:41 Room Air 03/15/22 08:39 36.1 116 16 98/66 (77) 97 Room Air 03/15/22 07:42 Room Air 03/15/22 07:00 119 03/15/22 03:23 37.1 112 20 110/72 (85) 99 Room Air 03/15/22 01:00 124 03/14/22 23:55 36.9 116 20 103/80 (88) 98 Room Air 03/14/22 21:13 112 117/66 (83) 03/14/22 21:00 Room Air 03/14/22 20:33 36.7 133 20 115/64 (81) 98 Room Air 03/14/22 19:00 130 03/14/22 18:39 Nasal Cannula 2.50 96 03/14/22 15:53 36.1 117 16 108/66 (80) 100 Room Air 03/14/22 12:45 131 03/14/22 11:16 36.2 102 18 104/63 (77) 98 Room Air I & O 03/15/22 07:00 Intake Total 1990 ml Output Total 2350 ml Balance -360 ml Laboratory Tests 03/15/22 05:15: Hemoglobin 11.6, Hematocrit 36 Patient states she is doing well and no c/o. Left hip incision clean and dry and well approx with no drainage warmth or erythema. Intact PF, DF and EHL. Bilateral calves soft and nontender with negative david's signs. Plan: Dressing changed today. Continue PT/OT DVT prophylaxis Home or NH whenever arrangements are available. Final Diagnosis Doing well S/P left hip surgery MEME MENDEZ Mar 15, 2022 11:31
--- NOTE | 2022-03-15 12:29 | Progress Note - Hospitalist ---
Subjective HPI/CC On Admission Date Seen by Provider: Mar 15, 2022 Time Seen by Provider: 11:40 Nette Corona is a 61 year old female who presented after a fall. She reports tripping over her feet and falling. She denies hitting her head or losing consciousness. She did not feel lightheaded or dizzy. She did not have any chest pain or palpitations. She denies shortness of breath. She has been in her normal state of health. She does not take any medications regularly. She does not have any known health problems. She does not smoke cigarettes. She does smoke methamphetamine. Subjective/Events-last exam She is doing well. She has been up walking. She is eating and drinking. She has no complaints. Objective Exam Vital Signs Vital Signs Date Time Temp Pulse Resp B/P (MAP) Pulse Ox O2 Delivery O2 Flow Rate FiO2 03/15/22 11:45 36.4 100 18 105/73 (84) 98 Room Air 03/14/22 18:39 2.50 96 Capillary Refill : Less Than 3 SecondsLess Than 3 Seconds General Appearance: No Apparent Distress, WD/WN Respiratory: Lungs Clear, No Respiratory Distress Cardiovascular: No Murmur, Tachycardia Gastrointestinal: Normal Bowel Sounds, Soft Extremity: Normal Inspection, No Pedal Edema Neurologic/Psychiatric: Alert, Normal Mood/Affect Results/Procedures Lab Laboratory Tests 03/15/22 05:15 Patient resulted labs reviewed. Imaging: Reviewed Imaging Report Assessment/Plan Assessment and Plan Assess & Plan/Chief Complaint Closed displaced fracture of the left femoral neck Ortho consulted, [facility] Surgery 03/12 PT/OT Pain regimen Bowel regimen Incentive spirometry Substance abuse Sinus tachycardia Positive for amphetamines/methamphetamines Former smoker Wheezing MAT protocol Homelessness assisting with discharge planning DVT prophylaxis: Lovenox Diagnosis/Problems Diagnosis/Problems (1) Closed displaced fracture of left femoral neck Status: Acute (2) Substance abuse Status: Acute (3) Former smoker Status: Acute (4) Wheezing Status: Acute (5) Homelessness Status: Acute SUZETTE DOWLING MD Mar 15, 2022 12:29
--- NOTE | 2022-03-15 13:06 | Physical Therapy Daily Note ---
PT Daily Note-Current Subjective Pt. in bed, readily agrees to PT. Pain Section J - Health Conditions 1. Rarely or not at all 2. Occasionally 3. Frequently 4. Almost constantly 8. Unable to answer Pain Effect on Sleep: 2 Pain Interference with Therapy: 2 Pain Interference w/Day-to-Day: 2 Transfers SCALE: Activities may be completed with or without assistive devices. 2-Mjvhhcrdnx-ownvqck completes the activity by him/herself with no assistance from a helper. 5-Set-up or Clean-up Assistance-helper sets up or cleans up; patient completes activity. [place] assists only prior to or following the activity. 4-Supervision or Touching Assistance-helper provides verbal cues and/or touching/steadying and/or contact guard assistance as patient completes activity. Assistance may be provided throughout the activity or intermittently. 3-Partial/Moderate Assistance-helper does LESS THAN HALF the effort. [place] lifts, holds or supports trunk or limbs, but provides less than half the effort. 2-Substantial/Maximal Assistance-helper does MORE THAN HALF the effort. [place] lifts or holds trunk or limbs and provides more than half the effort. 3-Qhvypzgpp-rlessx does ALL the effort. Patient does none of the effort to complete the activity. Or, the assistance of 2 or more helpers is required for the patient to complete the activity. If activity was not attempted, code reason: 7-Patient Refused. 9-Not Applicable-not attempted and the patient did not perform the activity before the current illness, exacerbation or injury. 10-Not Attempted due to Environmental Limitations-(lack of equipment, weather restraints, etc.). 88-Not Attempted due to Medical Conditions or Safety Concerns. Lying to Sitting/Side of Bed(Q: 6 Sit to Stand (QC): 6 Toilet Transfer (QC): 4 Weight Bearing Right Lower Extremity: Right Full Weight Bearing Left Lower Extremity: Left Weight Bearing/Tolerated Gait Training Does the Patient Walk?: Yes Distance: 225 ft Walk 10 feet (QC): 4 Walk 150 ft (QC): 4 Gait Persons Needed: 1 Gait Assistive Device: FWW Pt. is steady but has increased kyphotic posture Assessment Current Status: Good Progress Pt. is progressing well with therapy, nearing full (I) with all mobility. Pt. returned to bedside chair in room post session with call light and all needs met. PT Housekeeping Manager Goals Intermediate Goals PT Intermediate Goals Time Frame: Mar 29, 2022 Roll Left & Right (QC): 6 Sit to Lying (QC): 6 Lying-Sitting on Side/Bed(QC): 6 Sit to Stand (QC): 6 Chair/Qhe-yl-Neurc Xfer(QC): 6 Toilet Transfer (QC): 6 Walk 10 feet (QC): 6 Walk 50ft with 2 Turns (QC): 6 Walk 150 ft (QC): 6 1 Step (curb) (QC): 4 4 Steps (QC): 4 PT Plan Treatment/Plan Treatment Plan: Continue Plan of Care Treatment Plan: Bed Mobility, Education, Functional Activity [place], Functional Strength, Gait, Safety, Therapeutic Exercise, Transfers Treatment Duration: Mar 29, 2022 Frequency: 11 times per week Estimated Hrs Per Day: .5 hour per day Patient and/or Family Agrees t: Yes Time Time In: 902 Time Out: 919 DATE: Mar 15, 2022 Total Billed Treatment Time: 17 Total Billed Treatment 1, GT 12', (FA 5') JOSE BRUMFIELD PT Mar 15, 2022 13:06
[2022-03-16 03:07] VITALS: BP 114/79
[2022-03-16] MEDS: HYDROcodone/APAP 7.5 MG/325 MG (LORTAB, LORCET PLUS) TABLET PO PRN ×3 (05:37→21:06)
[2022-03-16 06:16] LABS: HEMOGLOBIN 11.6 g/dL (11.5-16.0)
--- NOTE | 2022-03-16 07:11 | Progress Note ---
Standard Progress Note Progress Notes/Assess & Plan Date Seen by a Provider: Mar 16, 2022 Time Seen by a Provider: 07:11 Progress/Assessment & Plan patient seen and examined consult dictated plan for left hip bipolar replacement today Final Diagnosis no complaints Vital Signs Date Time Temp Pulse Resp B/P (MAP) Pulse Ox O2 Delivery O2 Flow Rate FiO2 03/16/22 03:07 36.4 97 14 114/79 (91) 97 Room Air 03/16/22 01:00 121 03/15/22 23:39 36.5 109 16 98/66 (77) 100 Room Air 03/15/22 21:00 36.5 110 16 104/72 (83) 95 Room Air 03/15/22 20:00 36.3 120 18 103/74 (84) 94 Room Air 03/15/22 19:40 Room Air 03/15/22 19:00 122 03/15/22 16:35 36.2 113 18 101/65 (77) 100 Room Air 03/15/22 13:00 113 03/15/22 11:45 36.4 100 18 105/73 (84) 98 Room Air 03/15/22 10:41 Room Air 03/15/22 08:39 36.1 116 16 98/66 (77) 97 Room Air 03/15/22 07:42 Room Air I & O 03/16/22 07:00 Intake Total 1340 ml Output Total 1850 ml Balance -510 ml Laboratory Tests Test 03/16/22 05:23 Range/Units Hemoglobin 11.6 11.5-16.0 g/dL Hematocrit 35 35-52 % L hip incision clean and dry no calf tenderness neg Annie's s/p L hip bipolar DC tomorrow BOOM STEIN MD Mar 16, 2022 07:11
[2022-03-16] MEDS: ENOXAPARIN 40 MG/0.4 ML (LOVENOX) SYR SC SCH (07:48)
[2022-03-16] MEDS: SENNOSIDES 8.6 MG (SENOKOT) TAB PO SCH ×2 (07:48→19:25)
[2022-03-16 08:09] VITALS: BP 117/61
--- NOTE | 2022-03-16 10:35 | Physical Therapy Daily Note ---
PT Daily Note-Current Subjective Pt. in bed, states she's been nauseous last night and today. Pt. does agree to PT. Pain Section J - Health Conditions 1. Rarely or not at all 2. Occasionally 3. Frequently 4. Almost constantly 8. Unable to answer Pain Effect on Sleep: 2 Pain Interference with Therapy: 2 Pain Interference w/Day-to-Day: 2 Transfers SCALE: Activities may be completed with or without assistive devices. 2-Dviduoexai-fnewcso completes the activity by him/herself with no assistance from a helper. 5-Set-up or Clean-up Assistance-helper sets up or cleans up; patient completes activity. [place] assists only prior to or following the activity. 4-Supervision or Touching Assistance-helper provides verbal cues and/or touchi ng/steadying and/or contact guard assistance as patient completes activity. Assistance may be provided throughout the activity or intermittently. 3-Partial/Moderate Assistance-helper does LESS THAN HALF the effort. [place] lifts, holds or supports trunk or limbs, but provides less than half the effort. 2-Substantial/Maximal Assistance-helper does MORE THAN HALF the effort. [place] lifts or holds trunk or limbs and provides more than half the effort. 1-Cnhybsacx-anmzck does ALL the effort. Patient does none of the effort to complete the activity. Or, the assistance of 2 or more helpers is required for the patient to complete the activity. If activity was not attempted, code reason: 7-Patient Refused. 9-Not Applicable-not attempted and the patient did not perform the activity before the current illness, exacerbation or injury. 10-Not Attempted due to Environmental Limitations-(lack of equipment, weather restraints, etc.). 88-Not Attempted due to Medical Conditions or Safety Concerns. Lying to Sitting/Side of Bed(Q: 6 Sit to Stand (QC): 6 Weight Bearing Right Lower Extremity: Right Full Weight Bearing Left Lower Extremity: Left Weight Bearing/Tolerated Gait Training Does the Patient Walk?: Yes Distance: 200 ft Walk 10 feet (QC): 6 Walk 50 ft with 2 Turns(QC): 6 Walk 150 ft (QC): 6 Gait Persons Needed: 1 Gait Assistive Device: FWW kyphotic posture but is steady throughout ambulation Exercises Seated Therapy Exercises: Ankle pumps, Long arc quads Seated Reps: 15 Assessment Current Status: Good Progress Pt.'s mobility is progressing very well. She is steady with ambulation but does fatigue with distance. Pt. in bedside chair post session with call light and all needs met. PT Debt Counselor Goals Debt Counselor Goals PT Debt Counselor Goals Time Frame: Mar 29, 2022 Roll Left & Right (QC): 6 Sit to Lying (QC): 6 Lying-Sitting on Side/Bed(QC): 6 Sit to Stand (QC): 6 Chair/Psn-xv-Orkks Xfer(QC): 6 Toilet Transfer (QC): 6 Walk 10 feet (QC): 6 Walk 50ft with 2 Turns (QC): 6 Walk 150 ft (QC): 6 1 Step (curb) (QC): 4 4 Steps (QC): 4 PT Plan Treatment/Plan Treatment Plan: Continue Plan of Care Treatment Plan: Bed Mobility, Education, Functional Activity [place], Functional Strength, Gait, Safety, Therapeutic Exercise, Transfers Treatment Duration: Mar 29, 2022 Frequency: 11 times per week Estimated Hrs Per Day: .5 hour per day Patient and/or Family Agrees t: Yes Time Time In: 1010 Time Out: 1026 DATE: Mar 16, 2022 Total Billed Treatment Time: 16 Total Billed Treatment 1, GT 16' JOSE BRUMFIELD PT Mar 16, 2022 10:35
[2022-03-16 12:02] VITALS: BP 111/73
--- NOTE | 2022-03-16 13:52 | Progress Note - Hospitalist ---
Subjective HPI/CC On Admission Date Seen by Provider: Mar 16, 2022 Time Seen by Provider: 10:20 Nette Corona is a 61 year old female who presented after a fall. She reports tripping over her feet and falling. She denies hitting her head or losing consciousness. She did not feel lightheaded or dizzy. She did not have any chest pain or palpitations. She denies shortness of breath. She has been in her normal state of health. She does not take any medications regularly. She does not have any known health problems. She does not smoke cigarettes. She does smoke methamphetamine. Subjective/Events-last exam She is doing well. She denies pain. She has been up and walking. She is missing her dog. Objective Exam Vital Signs Vital Signs Date Time Temp Pulse Resp B/P (MAP) Pulse Ox O2 Delivery O2 Flow Rate FiO2 03/16/22 13:00 118 03/16/22 12:02 36.3 20 111/73 (86) 95 Room Air 03/16/22 09:20 2.50 03/14/22 18:39 96 Capillary Refill : Less Than 3 SecondsLess Than 3 Seconds General Appearance: No Apparent Distress, WD/WN Respiratory: Lungs Clear, No Respiratory Distress Cardiovascular: Regular Rate, Rhythm, No Murmur Gastrointestinal: Normal Bowel Sounds, Soft Extremity: Normal Inspection, No Pedal Edema Skin: Normal Color, Warm/Dry Results/Procedures Lab Laboratory Tests 03/16/22 05:23 Patient resulted labs reviewed. Imaging: Reviewed Imaging Report Assessment/Plan Assessment and Plan Assess & Plan/Chief Complaint Closed displaced fracture of the left femoral neck Ortho consulted, [facility] Surgery 03/12 PT/OT Pain regimen Bowel regimen Incentive spirometry Substance abuse Sinus tachycardia Former smoker Wheezing Homelessness SW assisting with discharge planning DVT prophylaxis: Lovenox Diagnosis/Problems Diagnosis/Problems (1) Closed displaced fracture of left femoral neck Status: Acute (2) Substance abuse Status: Acute (3) Former smoker Status: Acute (4) Wheezing Status: Acute (5) Homelessness Status: Acute SUZETTE DOWLING MD Mar 16, 2022 13:52
[2022-03-16 16:42] VITALS: BP 108/69
[2022-03-16 19:33] VITALS: BP 111/72
[2022-03-16 23:39] VITALS: BP 103/65
[2022-03-17] VITALS (7 sets, daily range): BP systolic 108–115; BP diastolic 65–76
[2022-03-17] MEDS: ENOXAPARIN 40 MG/0.4 ML (LOVENOX) SYR SC SCH (07:41)
[2022-03-17] MEDS: SENNOSIDES 8.6 MG (SENOKOT) TAB PO SCH ×2 (07:41→19:44)
[2022-03-17] MEDS: HYDROcodone/APAP 7.5 MG/325 MG (LORTAB, LORCET PLUS) TABLET PO PRN ×2 (07:51→19:44)
--- NOTE | 2022-03-17 08:48 | Occupational Ther Daily Note ---
OT Current Status-Daily Note Subjective Pt alert, in bed. Pt agrees to therapy. Pt c/o moderate pain in L hip. Mental Status/Objective Patient Orientation: Person, Place, Time, Situation ADL-Treatment Pt independent to EOB and sit to stand transfer. Pt ambulates with FWW and completes toilet transfer and hygiene independently.Pt complete oral care standing at sink independently. Pt in recliner post tx. Phone/call light in reach. All needs met in room. Therapy Code Descriptions/Definitions Functional [place] Measure: 0=Not Assessed/NA 4=Minimal Assistance 1=Total Assistance 5=Supervision or Setup 2=Maximal Assistance 6=Modified [place] 3=Moderate Assistance 7=Complete IndependenceSCALE: Activities may be completed with or without assistive devices. 3-Hzmkyaouef-zbvcsib completes the activity by him/herself with no assistance from a helper. 5-Set-up or Clean-up Assistance-helper sets up or cleans up; patient completes activity. [place] assists only prior to or following the activity. 4-Supervision or Touching Assistance-helper provides verbal cues and/or touchi ng/steadying and/or contact guard assistance as patient completes activity. Assistance may be provided throughout the activity or intermittently. 3-Partial/Moderate Assistance-helper does LESS THAN HALF the effort. [place] lifts, holds or supports trunk or limbs, but provides less than half the effort. 2-Substantial/Maximal Assistance-helper does MORE THAN HALF the effort. [place] lifts or holds trunk or limbs and provides more than half the effort. 1-[place]-ryeixp does ALL the effort. Patient does none of the effort to complete the activity. Or, the assistance of 2 or more helpers is required for the patient to complete the activity. If activity was not attempted, code reason: 7-Patient Refused. 9-Not Applicable-not attempted and the patient did not perform the activity before the current illness, exacerbation or injury. 10-Not Attempted due to Environmental Limitations-(lack of equipment, weather restraints, etc.). 88-Not Attempted due to Medical Conditions or Safety Concerns. Eating (QC): 6 Oral Hygiene (QC): 6 Toileting Hygiene (QC): 6 Toilet Transfer (QC): 6 OT Short Term Goals Short Term Goals Time Frame: Mar 20, 2022 Eatin Oral hygiene: 5 Toileting hygiene: 4 Shower/bathe self: 4 Upper body dressin Lower body dressin Putting on/taking off footwear: 4 OT Senior Care Goals Senior Care Goals Time Frame: Apr 03, 2022 Eating (QC): 6 Oral Hygiene (QC): 6 Toileting Hygiene (QC): 6 Shower/Bathe Self (QC): 5 Upper Body Dressing (QC): 6 Lower Body Dressing (QC): 6 On/Off Footwear (QC): 6 Additional Goals: 1-Demonstrate ADL Tasks, 2-Verbalize Understanding, 3- ImproveStrength/[place] 1=Demonstrate adherence to instructed precautions during ADL tasks. 2=Patient will verbalize/demonstrate understanding of assistive devices/modifications for ADL. 3=Patient will improve strength/tolerance for activity to enable patient to perform ADL's. OT Education/Plan Problem List/Assessment Assessment: Decreased Activ Tolerance, Impaired I ADL's, Impaired Self-Care Skills Discharge Recommendations Plan/Recommendations: Continue POC Treatment Plan/Plan of Care Patient would benefit from OT for education, treatment and training to promote independence in ADL's, mobility, safety and/or upper extremity function for ADL's. Plan of Care: ADL Retraining, Functional Mobility, UE Funct Exercise/Act Treatment Duration: Apr 03, 2022 Frequency: 3 times per week (3-5x/week) Estimated Hrs Per Day: .25 hour per day Agreement: Yes Rehab Potential: Good Time Start Time: 08:14 Stop Time: 08:28 DATE: Mar 17, 2022 Total Time Billed (hr/min): 14 Billed Treatment Time 1 visit ADL (14 min) YAMILEX MENDIETA Mar 17, 2022 08:48
--- NOTE | 2022-03-17 10:20 | Physical Therapy Daily Note ---
PT Daily Note-Current Subjective Patient reports she is up in room independently. Agrees to PT. Pain Section J - Health Conditions 1. Rarely or not at all 2. Occasionally 3. Frequently 4. Almost constantly 8. Unable to answer Pain Effect on Sleep: 2 Pain Interference with Therapy: 2 Pain Interference w/Day-to-Day: 2 Mental Status Patient Orientation: Normal For Age Transfers SCALE: Activities may be completed with or without assistive devices. 3-Kcfbmfbmuh-cnoskmg completes the activity by him/herself with no assistance from a helper. 5-Set-up or Clean-up Assistance-helper sets up or cleans up; patient completes activity. [place] assists only prior to or following the activity. 4-Supervision or Touching Assistance-helper provides verbal cues and/or touching/steadying and/or contact guard assistance as patient completes activity. Assistance may be provided throughout the activity or intermittently. 3-Partial/Moderate Assistance-helper does LESS THAN HALF the effort. [place] lifts, holds or supports trunk or limbs, but provides less than half the effort. 2-Substantial/Maximal Assistance-helper does MORE THAN HALF the effort. [place] lifts or holds trunk or limbs and provides more than half the effort. 4-Mwgzniodl-jzmagg does ALL the effort. Patient does none of the effort to complete the activity. Or, the assistance of 2 or more helpers is required for the patient to complete the activity. If activity was not attempted, code reason: 7-Patient Refused. 9-Not Applicable-not attempted and the patient did not perform the activity before the current illness, exacerbation or injury. 10-Not Attempted due to Environmental Limitations-(lack of equipment, weather restraints, etc.). 88-Not Attempted due to Medical Conditions or Safety Concerns. Sit to Stand (QC): 6 Weight Bearing Right Lower Extremity: Right Full Weight Bearing Left Lower Extremity: Left Weight Bearing/Tolerated Gait Training Distance: 250' Walk 10 feet (QC): 5 Walk 50 ft with 2 Turns(QC): 5 Walk 150 ft (QC): 5 Gait Assistive Device: FWW trunk flexed posture, step to gait sequence Exercises Seated Therapy Exercises: Ankle pumps, Long arc quads, Hip flexion Seated Reps: 15 Assessment Patient progressing with treatment plan and continues to await placement. Increase activity as tolerated by patient. PT Loin Trimmer Goals Loin Trimmer Goals PT Loin Trimmer Goals Time Frame: Mar 29, 2022 Roll Left & Right (QC): 6 Sit to Lying (QC): 6 Lying-Sitting on Side/Bed(QC): 6 Sit to Stand (QC): 6 Chair/Oco-gm-Owlaf Xfer(QC): 6 Toilet Transfer (QC): 6 Walk 10 feet (QC): 6 Walk 50ft with 2 Turns (QC): 6 Walk 150 ft (QC): 6 1 Step (curb) (QC): 4 4 Steps (QC): 4 PT Plan Treatment/Plan Treatment Plan: Continue Plan of Care Treatment Plan: Bed Mobility, Education, Functional Activity [place], Functional Strength, Gait, Safety, Therapeutic Exercise, Transfers Treatment Duration: Mar 29, 2022 Frequency: 11 times per week Estimated Hrs Per Day: .5 hour per day Patient and/or Family Agrees t: Yes Time Time In: 900 Time Out: 914 DATE: Mar 17, 2022 Total Billed Treatment Time: 14 Total Billed Treatment 1 visit FA 14 min TRICE HUBBARD PT Mar 17, 2022 10:20
[2022-03-17] MEDS: ONDANSETRON 4 MG/2 ML (SDV) Z0FRAN IV PRN (11:13)
--- NOTE | 2022-03-17 11:34 | Progress Note - Hospitalist ---
Subjective HPI/CC On Admission Date Seen by Provider: Mar 17, 2022 Nette Corona is a 61 year old female who presented after a fall. She reports tripping over her feet and falling. She denies hitting her head or losing consciousness. She did not feel lightheaded or dizzy. She did not have any chest pain or palpitations. She denies shortness of breath. She has been in her normal state of health. She does not take any medications regularly. She does not have any known health problems. She does not smoke cigarettes. She does smoke methamphetamine. Subjective/Events-last exam Pt reports doing well. Pain controlled but having some nausea. Objective Exam Vital Signs Vital Signs Date Time Temp Pulse Resp B/P (MAP) Pulse Ox O2 Delivery O2 Flow Rate FiO2 03/17/22 08:38 36.1 109 18 108/71 (83) 96 2.00 03/17/22 08:00 Room Air 03/14/22 18:39 96 Capillary Refill : Less Than 3 SecondsLess Than 3 Seconds General Appearance: No Apparent Distress, WD/WN Respiratory: Lungs Clear, No Respiratory Distress Cardiovascular: Regular Rate, Rhythm, No Murmur Neurologic/Psychiatric: Alert, Oriented x3 Results/Procedures Lab Patient resulted labs reviewed. Imaging: Reviewed Imaging Report Assessment/Plan Assessment and Plan Assess & Plan/Chief Complaint Closed displaced fracture of the left femoral neck Ortho consulted, [facility] Surgery 03/12 PT/OT Pain regimen Bowel regimen Incentive spirometry Doing very well postop, social work assisting with discharge planning as quite complicated given patient is homeless Substance abuse Sinus tachycardia Former smoker Wheezing Homelessness SW assisting with discharge planning DVT prophylaxis: ENRICO Guzman MD Mar 17, 2022 11:34
--- NOTE | 2022-03-17 14:10 | Physical Therapy Daily Note ---
PT Daily Note-Current Subjective Patient agrees to PT. Pain Section J - Health Conditions 1. Rarely or not at all 2. Occasionally 3. Frequently 4. Almost constantly 8. Unable to answer Pain Effect on Sleep: 2 Pain Interference with Therapy: 2 Pain Interference w/Day-to-Day: 2 Transfers SCALE: Activities may be completed with or without assistive devices. 6-Cvaqerfwxm-nftugbe completes the activity by him/herself with no assistance from a helper. 5-Set-up or Clean-up Assistance-helper sets up or cleans up; patient completes activity. [place] assists only prior to or following the activity. 4-Supervision or Touching Assistance-helper provides verbal cues and/or touching/steadying and/or contact guard assistance as patient completes activity. Assistance may be provided throughout the activity or intermittently. 3-Partial/Moderate Assistance-helper does LESS THAN HALF the effort. [place] lifts, holds or supports trunk or limbs, but provides less than half the effort. 2-Substantial/Maximal Assistance-helper does MORE THAN HALF the effort. [place] lifts or holds trunk or limbs and provides more than half the effort. 0-Xyqaplrrf-ogkawx does ALL the effort. Patient does none of the effort to complete the activity. Or, the assistance of 2 or more helpers is required for the patient to complete the activity. If activity was not attempted, code reason: 7-Patient Refused. 9-Not Applicable-not attempted and the patient did not perform the activity before the current illness, exacerbation or injury. 10-Not Attempted due to Environmental Limitations-(lack of equipment, weather restraints, etc.). 88-Not Attempted due to Medical Conditions or Safety Concerns. Sit to Stand (QC): 6 Weight Bearing Right Lower Extremity: Right Full Weight Bearing Left Lower Extremity: Left Weight Bearing/Tolerated Gait Training Distance: 250' Walk 10 feet (QC): 5 Walk 50 ft with 2 Turns(QC): 5 Walk 150 ft (QC): 5 Gait Assistive Device: FWW VC's for posture Exercises Seated Therapy Exercises: Ankle pumps, Long arc quads Seated Reps: 15 Assessment Current Status: Excellent Progress PT Correction Goals Correction Goals PT School Bus Inspector Goals Time Frame: Mar 29, 2022 Roll Left & Right (QC): 6 Sit to Lying (QC): 6 Lying-Sitting on Side/Bed(QC): 6 Sit to Stand (QC): 6 Chair/Rtt-bg-Xenqs Xfer(QC): 6 Toilet Transfer (QC): 6 Walk 10 feet (QC): 6 Walk 50ft with 2 Turns (QC): 6 Walk 150 ft (QC): 6 1 Step (curb) (QC): 4 4 Steps (QC): 4 PT Plan Treatment/Plan Treatment Plan: Continue Plan of Care Treatment Plan: Bed Mobility, Education, Functional Activity [place], Functional Strength, Gait, Safety, Therapeutic Exercise, Transfers Treatment Duration: Mar 29, 2022 Frequency: 11 times per week Estimated Hrs Per Day: .5 hour per day Patient and/or Family Agrees t: Yes Time Time In: 1330 Time Out: 1345 DATE: Mar 17, 2022 Total Billed Treatment Time: 15 Total Billed Treatment 1 visit FA 15 min TRICE HUBBARD PT Mar 17, 2022 14:10
[2022-03-18] VITALS (7 sets, daily range): BP systolic 101–119; BP diastolic 67–78
[2022-03-18] MEDS: ENOXAPARIN 40 MG/0.4 ML (LOVENOX) SYR SC SCH (08:46)
[2022-03-18] MEDS: SENNOSIDES 8.6 MG (SENOKOT) TAB PO SCH ×2 (08:46→20:00)
[2022-03-18] MEDS: ONDANSETRON 4 MG/2 ML (SDV) Z0FRAN IV PRN (09:04)
--- NOTE | 2022-03-18 09:26 | Occupational Ther Daily Note ---
OT Current Status-Daily Note Subjective Pt in recliner, alert. Pt agrees to therapy. C/o no pain. Mental Status/Objective Patient Orientation: Person, Place, Time, Situation ADL-Treatment Per PT, pt ambulating and completing in room task independently. Pt agrees to sponge bath. Pt able to wipe upper/lower body and saravanan area without assistance. Pt dons/doffs footwear, following hip precautions. Laces feet through underwear while seated and stands with FWW to hike pants over hips, displays good balance. Pt has met ADL goals, OT to dismiss pt from services at this time. Pt in recliner at end of session. Phone/call light in reach. All needs met in room. Therapy Code Descriptions/Definitions Functional [place] Measure: 0=Not Assessed/NA 4=Minimal Assistance 1=Total Assistance 5=Supervision or Setup 2=Maximal Assistance 6=Modified [place] 3=Moderate Assistance 7=Complete IndependenceSCALE: Activities may be completed with or without assistive devices. 4-Bgvqzmwwya-lkvyzyd completes the activity by him/herself with no assistance from a helper. 5-Set-up or Clean-up Assistance-helper sets up or cleans up; patient completes activity. [place] assists only prior to or following the activity. 4-Supervision or Touching Assistance-helper provides verbal cues and/or touching/steadying and/or contact guard assistance as patient completes activity. Assistance may be provided throughout the activity or intermittently. 3-Partial/Moderate Assistance-helper does LESS THAN HALF the effort. [place] lifts, holds or supports trunk or limbs, but provides less than half the effort. 2-Substantial/Maximal Assistance-helper does MORE THAN HALF the effort. [place] lifts or holds trunk or limbs and provides more than half the effort. 8-Mrshirwif-thrsam does ALL the effort. Patient does none of the effort to complete the activity. Or, the assistance of 2 or more helpers is required for the patient to complete the activity. If activity was not attempted, code reason: 7-Patient Refused. 9-Not Applicable-not attempted and the patient did not perform the activity before the current illness, exacerbation or injury. 10-Not Attempted due to Environmental Limitations-(lack of equipment, weather restraints, etc.). 88-Not Attempted due to Medical Conditions or Safety Concerns. Lower Body Dressing (QC): 6 On/Off Footwear: 6 OT Short Term Goals Short Term Goals Time Frame: Mar 20, 2022 Eatin Oral hygiene: 5 Toileting hygiene: 4 Shower/bathe self: 4 Upper body dressin Lower body dressin Putting on/taking off footwear: 4 OT Hospitalist Nocturnist Physician Goals Hospitalist Nocturnist Physician Goals Time Frame: Apr 03, 2022 Eating (QC): 6 Oral Hygiene (QC): 6 Toileting Hygiene (QC): 6 Shower/Bathe Self (QC): 5 Upper Body Dressing (QC): 6 Lower Body Dressing (QC): 6 On/Off Footwear (QC): 6 Additional Goals: 1-Demonstrate ADL Tasks, 2-Verbalize Understanding, 3- ImproveStrength/[place] 1=Demonstrate adherence to instructed precautions during ADL tasks. 2=Patient will verbalize/demonstrate understanding of assistive devices/modifications for ADL. 3=Patient will improve strength/tolerance for activity to enable patient to perform ADL's. OT Education/Plan Discharge Recommendations Plan/Recommendations: Discharge/Goals Met Treatment Plan/Plan of Care Patient would benefit from OT for education, treatment and training to promote independence in ADL's, mobility, safety and/or upper extremity function for ADL's. Plan of Care: ADL Retraining, Functional Mobility, UE Funct Exercise/Act Treatment Duration: Apr 03, 2022 Frequency: 3 times per week (3-5x/week) Estimated Hrs Per Day: .25 hour per day Agreement: Yes Rehab Potential: Good Time Start Time: 09:05 Stop Time: 09:20 DATE: Mar 18, 2022 Total Time Billed (hr/min): 15 Billed Treatment Time 1 visit ADL (15 min) YAMILEX MENDIETA Mar 18, 2022 09:26
--- NOTE | 2022-03-18 09:42 | Physical Therapy Daily Note ---
PT Daily Note-Current Subjective Pt found in bed upon entry. Pt agreed to therapy Tx. Reports feeling nauseous since this morning. Pain Numeric Pain Scale: 1 Location: Left Location Body Site: Hip Section J - Health Conditions 1. Rarely or not at all 2. Occasionally 3. Frequently 4. Almost constantly 8. Unable to answer Pain Effect on Sleep: 1 Pain Interference with Therapy: 1 Pain Interference w/Day-to-Day: 1 Mental Status Patient Orientation: Person, Time, Situation Transfers SCALE: Activities may be completed with or without assistive devices. 7-Zeatlupfeg-vpsebuu completes the activity by him/herself with no assistance from a helper. 5-Set-up or Clean-up Assistance-helper sets up or cleans up; patient completes activity. [place] assists only prior to or following the activity. 4-Supervision or Touching Assistance-helper provides verbal cues and/or touching/steadying and/or contact guard assistance as patient completes activity. Assistance may be provided throughout the activity or intermittently. 3-Partial/Moderate Assistance-helper does LESS THAN HALF the effort. [place] lifts, holds or supports trunk or limbs, but provides less than half the effort. 2-Substantial/Maximal Assistance-helper does MORE THAN HALF the effort. [place] lifts or holds trunk or limbs and provides more than half the effort. 4-Acstkawcd-grlhkv does ALL the effort. Patient does none of the effort to complete the activity. Or, the assistance of 2 or more helpers is required for the patient to complete the activity. If activity was not attempted, code reason: 7-Patient Refused. 9-Not Applicable-not attempted and the patient did not perform the activity before the current illness, exacerbation or injury. 10-Not Attempted due to Environmental Limitations-(lack of equipment, weather restraints, etc.). 88-Not Attempted due to Medical Conditions or Safety Concerns. Lying to Sitting/Side of Bed(Q: 6 Sit to Stand (QC): 6 Chair/Ewz-pu-Spmqt Xfer(QC): 6 Pt independent /c all trfs. Weight Bearing Right Lower Extremity: Right Full Weight Bearing Left Lower Extremity: Left Weight Bearing/Tolerated Gait Training Does the Patient Walk?: Yes Distance: 500ft Walk 10 feet (QC): 6 Walk 50 ft with 2 Turns(QC): 6 Walk 150 ft (QC): 6 Gait Assistive Device: FWW Pt independent /c gait training. Wheelchair Training Does the Pt Use a Wheelchair?: No Assessment Current Status: Excellent Progress Pt tolerates gait training well /c no report of increased pain. Pt is independent /c all gross motor skills and is up independently. Consulted /c PT, PT to dismiss pt at this time. SW and physician notified. PT Short Term Goals Short Term Goals Time Frame: Mar 18, 2022 PT Resource Room Teacher Goals Half-Way Goals PT Resource Room Teacher Goals Time Frame: Mar 29, 2022 Roll Left & Right (QC): 6 Sit to Lying (QC): 6 Lying-Sitting on Side/Bed(QC): 6 Sit to Stand (QC): 6 Chair/Gik-ns-Qyzxt Xfer(QC): 6 Toilet Transfer (QC): 6 Walk 10 feet (QC): 6 Walk 50ft with 2 Turns (QC): 6 Walk 150 ft (QC): 6 1 Step (curb) (QC): 4 4 Steps (QC): 4 PT Plan Treatment/Plan Treatment Plan: Discontinue PT Treatment Plan: Bed Mobility, Education, Functional Activity [place], Functional Strength, Gait, Safety, Therapeutic Exercise, Transfers Treatment Duration: Mar 29, 2022 Frequency: 11 times per week Estimated Hrs Per Day: .5 hour per day Patient and/or Family Agrees t: Yes Time Time In: 0847 Time Out: 900 DATE: Mar 18, 2022 Total Billed Treatment Time: 13 Total Billed Treatment 1 visit GT 13 mins. JESSIE GRAVES DOUBLE END PRODUCTION GRINDER Mar 18, 2022 09:42
--- NOTE | 2022-03-18 09:52 | Progress Note - Hospitalist ---
Subjective HPI/CC On Admission Date Seen by Provider: Mar 18, 2022 Nette Corona is a 61 year old female who presented after a fall. She reports tripping over her feet and falling. She denies hitting her head or losing consciousness. She did not feel lightheaded or dizzy. She did not have any chest pain or palpitations. She denies shortness of breath. She has been in her normal state of health. She does not take any medications regularly. She does not have any known health problems. She does not smoke cigarettes. She does smoke methamphetamine. Subjective/Events-last exam Complains of right sided rib pain. Otherwise doing well. Up ad pily with PT. Objective Exam Vital Signs Vital Signs Date Time Temp Pulse Resp B/P (MAP) Pulse Ox O2 Delivery O2 Flow Rate FiO2 03/18/22 09:31 36.8 102 93 21 03/18/22 09:28 Room Air 0.00 03/18/22 07:43 18 101/72 (82) Capillary Refill : Less Than 3 SecondsLess Than 3 Seconds General Appearance: No Apparent Distress, WD/WN Respiratory: Lungs Clear, No Accessory Muscle Use, No Respiratory Distress, Other (right sided posterior rib tenderness) Cardiovascular: Regular Rate, Rhythm, No Murmur Gastrointestinal: Normal Bowel Sounds, Soft Neurologic/Psychiatric: Alert, Oriented x3 Results/Procedures Lab Patient resulted labs reviewed. Imaging: Reviewed Imaging Report Assessment/Plan Assessment and Plan Assess & Plan/Chief Complaint Closed displaced fracture of the left femoral neck Rib pain XR- to evaluate for possible rib fracture from fall Ortho consulted, [facility] Surgery 03/12 PT/OT Pain regimen Bowel regimen Incentive spirometry Doing very well postop, social work assisting with discharge planning as quite complicated given patient is homeless Patient reports brother hopeful to find arrangements for her to DC tomorrow Substance abuse Sinus tachycardia Former smoker Wheezing Homelessness SW assisting with discharge planning DVT prophylaxis: ENRICO Guzman MD Mar 18, 2022 09:52
[2022-03-18] MEDS: LIDOCAINE 4% (SALONPAS) PATCH TOP SCH (10:21)
[2022-03-18] MEDS ORDERED: ACETAMINOPHEN 500 MG TAB (TYLENOL) PO PRN (13:30)
[2022-03-18] MEDS ORDERED: IBUPROFEN TABLET 200 MG TAB PO PRN (13:30)
--- NOTE | 2022-03-18 14:06 | Discharge Inst-Simple/Standard ---
Discharge Inst-Standard Discharge Medications New, Converted or Re-Newed RX: Transmitted to Pharmacy Patient Instructions/Follow Up Plan of Care/Instructions/FU: Please continue to take your medications as written. Please follow up with your primary care doctor to follow up this hospital stay. Activity as Tolerated: Yes Discharge Diet: No Restrictions Return to The Hospital For: Chest pain, shortness of breath, fever, weakness, if you feel you are getting worse. ENRICO MITCHELL MD Mar 18, 2022 2:06 pm
--- NOTE | 2022-03-18 14:18 | Diagnostic Imaging Report ---
INDICATION: Right rib pain. FINDINGS: Two views. Multiple leads overlie the ribs obscuring detail. There appear to be probable displaced fractures involving the 8th, 9th, and 10th ribs. The lungs are well aerated. No pneumothorax or pleural effusion. IMPRESSION: Findings likely represent multiple displaced rib fractures laterally as described. Would recommend repeat films with lead wires removed. Dictated by: Dictated on workstation # [id number]
[2022-03-18] MEDS: HYDROcodone/APAP 7.5 MG/325 MG (LORTAB, LORCET PLUS) TABLET PO PRN (14:39)
[2022-03-18] MEDS: RT-ALBUTEROL/IPRATROPIUM 3 ML (DUONEB) VIAL INH SCH (20:00)
[2022-03-18] MEDS ORDERED: LIDOCAINE PATCH REMOVAL TP SCH (21:00)
[2022-03-19] MEDS: HYDROcodone/APAP 7.5 MG/325 MG (LORTAB, LORCET PLUS) TABLET PO PRN ×2 (01:53→08:19)
[2022-03-19 03:19] VITALS: BP 115/70
[2022-03-19 07:54] VITALS: BP 109/71
[2022-03-19] MEDS: LIDOCAINE 4% (SALONPAS) PATCH TOP SCH (08:18)
[2022-03-19] MEDS: ONDANSETRON 4 MG/2 ML (SDV) Z0FRAN IV PRN (08:19)
[2022-03-19] MEDS ORDERED: HYDR-34 PO (08:25)
[2022-03-19] MEDS: RT-ALBUTEROL/IPRATROPIUM 3 ML (DUONEB) VIAL INH SCH (08:25)
[2022-03-19] MEDS ORDERED: ONDA4TAB11 SL (08:25)
[2022-03-19] MEDS ORDERED: Lidocaine 4% Patch TOP (08:25)
--- NOTE | 2022-03-19 08:28 | Discharge Summary ---
Diagnosis/Chief Complaint Date of Admission Mar 12, 2022 at 01:30 Date of Discharge Discharge Date: Mar 19, 2022 Admission Diagnosis Hip fracture Primary Care No,Local Physician Discharge Diagnosis (1) Closed displaced fracture of left femoral neck Status: Acute (2) Substance abuse Status: Acute (3) Former smoker Status: Acute (4) Wheezing Status: Acute (5) Homelessness Status: Acute Discharge Summary Discharge Physical Exam Allergies: Coded Allergies: Sulfa (Sulfonamide Antibiotics) (Verified Allergy, Unknown, 03/12/22) codeine (Verified Allergy, Unknown, pt has received Lortab in the past, 03/12/22) Vitals & I&Os Vital Signs Date Time Temp Pulse Resp B/P (MAP) Pulse Ox O2 Delivery O2 Flow Rate FiO2 03/19/22 07:54 36.1 100 18 109/71 (84) 99 Room Air 03/18/22 20:00 0.00 03/18/22 09:31 21 Hospital Course Labs (last 24 hrs) Patient resulted labs reviewed. Imaging: Reviewed Imaging Report Discharge Home Medications: Active Scripts Active Ondansetron Odt (Ondansetron) 4 Mg Tab.rapdis 4 Mg SL Q4H PRN [Lidocaine 4% Patch] 1 EA Patch 1 Ea TOP DAILY HYDROcodone/APAP 7.5/325 TAB (Acetaminophen/Hydrocodone Bitart) 1 Ea Tablet 1 Ea PO Q2HR PRN Instructions to patient/family Please see electronic discharge instructions given to patient. ENRICO MITCHELL MD Mar 19, 2022 08:28
[2022-03-19 10:50] VITALS: BP 109/71
[2022-03-19] MEDS ORDERED: ACHD5005 PO (10:50)
[2022-03-19] MEDS: ENOXAPARIN 40 MG/0.4 ML (LOVENOX) SYR SC SCH (11:21)
[2022-03-19] MEDS: SENNOSIDES 8.6 MG (SENOKOT) TAB PO SCH (11:21)
--- NOTE | 2022-03-20 08:56 | Physician Query Clarification ---
PQ-Intro New Diagnosis Admission/Discharge Admission Date: Mar 12, 2022 at 01:30 Discharge Date: Mar 19, 2022 at 10:50 Dr. Arambula, The medical record reflects the following clinical scenario: History/Risk Factors: fall, subcapital fx lt femur Clinical Findings: Right rib xray - There appear to be probable displaced fractures involving the 8th, 9th, and 10th ribs. The lungs are well aerated. No pneumothorax or pleural effusion. IMPRESSION: Findings likely represent multiple displaced rib fractures laterally as described. Treatment: Ortho consult Diane. Would recommend repeat films with lead wires removed. Question: What condition best reflects the above clinical scenario? Please document a response in the Progress Noter or Discharge Summary. 1. Rt 8th, 9th, 10th rib fractures 2. Rt. rib pain fractures ruled out 3. Other, with explanation of the clinical findings. 4. Clinically undetermined, no explanation for the clinical findings. PHYSICIAN RESPONSE What condition reflects above: 1 In responding to this query, please exercise your independent professional judgment. The purpose of this communication is to more accurately reflect the complexity of your patients condition. The fact that a question is asked does not imply that any particular answer is desired or expected. Thank you for your timely response to this clarification. Requestors name: Mary THIS PHYSICIAN QUERY FORM IS A PERMANENT PART OF THE MEDICAL RECORD MARY ASHLEY Mar 20, 2022 08:56 ENRICO ARAMBULA MD Mar 20, 2022 16:27
== END 2022-03-19 10:50 | disposition home or self-care (01) | DRG 522 ==
LOC: EDUNIT# 00:46 → ER 00:48 → 4TH 01:30
PROVIDERS: ADMIT Internal Medicine; ATTEND Internal Medicine
PROC: 0SRS0JA Replacement of Left Hip Joint, Femoral Surface with Synthetic Substitute, Uncemented, Open Approach (ICD-10-PCS; principal; 2022-03-12 12:46)
DX: S72.012A Unspecified intracapsular fracture of left femur, initial encounter for closed fracture (principal); S22.41XA Multiple fractures of ribs, right side, initial encounter for closed fracture; F15.10 Other stimulant abuse, uncomplicated; W01.0XXA Fall on same level from slipping, tripping and stumbling without subsequent striking against object, initial encounter; F12.10 Cannabis abuse, uncomplicated; G62.9 Polyneuropathy, unspecified; J44.9 Chronic obstructive pulmonary disease, unspecified; R06.2 Wheezing; R00.0 Tachycardia, unspecified; Z59.00 Homelessness unspecified; Z87.891 Personal history of nicotine dependence; Z23 Encounter for immunization; Z88.5 Allergy status to narcotic agent; Z88.2 Allergy status to sulfonamides
CPT/HCPCS: 36415; 51702; 71045; 71100; 72192; 73501; 80053; 80306; 80320; 81000; 85014; 85018; 85025; 85610; 85730; 90686; 94640; 94760